=== PATIENT | female | born 1995 | race Caucasian/White ===

== ENCOUNTER 2016-05-12 14:00 | Observation (INO) | payer SELFPAY ==
[~2016-05-12 14:00] MED LIST: Heparin Sodium 5,000 Units/ML Vial SUBCUT SCH
[2016-05-12] MEDS: Lactated Ringers 1,000 ML IV SCH ×2 (14:30→21:50)
[2016-05-12] MEDS ORDERED: Lidocaine 1%/Sod Bicarbonate in NS 8.4% 1 ML Syringe IV ONE (14:54)
--- NOTE | 2016-05-12 15:26 | PCM.PREANE ---
Preanesthetic Assessment - ANESTHESIA/TRANSFUSION/FAMILY HX Anesthesia/Transfusion History: No Prior Transfusion(s), Prior Anesthesia Type of Anesthesia Reaction: Denies: Allergy, Anesthesia Awareness, Excessive Somnolence, Excessive Nausea/Vomiting, Excessive Itching, Excessive Shivering, Malignant Hyperthermia, Malignant Hyperthermia, Family History, Pseudocholinesterase Deficiency, Pseudocholinesterase Deficiency, Family History of, Urinary Retention, Unknown, Other (see below) Family History of Anesthesia Reaction: No Intubation History: Unknown - REVIEW OF SYSTEMS Constitutional: 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 (Note patient being almost 26 weeks .) 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: 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 Respiratory: 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 (asthma as a child, no symptoms as an adult.) Cardiovascular: 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 GI: 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 Other: Reports: none - PHYSICAL ASSESSMENT HR: 97 O2 Sat by Pulse Oximetry: 97 RR: 16 BP: 123/70 Temp: 37.0 C Vital Signs: Last Vital Signs Temp 37.0 C 05/12/16 14:00 Pulse 97 05/12/16 14:00 Resp 16 05/12/16 14:00 BP 123/70 05/12/16 14:00 Pulse Ox 97 05/12/16 14:00 Height: 1.73 m Weight: 92.079 kg NPO Status Date: 05/12/16 NPO Status Time: 07:30 ASA Class: 2E Mental Status: alert & oriented x3 Airway Class: Mallampati = 2 Dentition: Reports: normal dentition, caries Thyro-Mental Finger Breadths: 3 Mouth Opening Finger Breadths: 3 ROM/Head Extension: full Respiratory Status: lungs clear to auscultation bilaterally Cardiovascular Status: regular rate & rhythm, normal S1, S2, no murmur, blood pressure WNL - LAB Values: Reviewed and noted. - IMAGING/EKG Impressions: EK: Sinus Tachycardia/Borderline Q waves in inferior leads noted./ This EKG was performed after C section due to heart racing. Patient states she has not had any problems since. 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: - Past Surgical History HEENT Surgical History: Reports: Adenoidectomy - SUBSTANCE USE Smoking Status *Q: Never Smoker Tobacco Use Within Last Twelve Months: No Second Hand Smoke Exposure: No Recreational Drug Use History: No - HOME MEDS Home Medications: Home Meds Vits #90/Iron Fum/FA [ Formula] 1 each PO DAILY 11/10/14 [ History] Acetaminophen/oxyCODONE [Percocet 325-5 MG] 1 tab PO Q8H PRN #15 tablet [Rx] Docusate Sodium [Colace] 100 mg PO Q12H PRN #50 cap 11/13/14 [Rx] - CURRENT (IN HOUSE) MEDS Current Meds: Current Medications Heparin Sodium (Porcine) (Heparin Sodium) 5,000 units SUBCUT ONETIME [facility]UDDY Stop: 05/12/16 18:00 Lactated Ringer's (Ringers, Lactated) 1,000 mls @ 125 mls/hr IV ASDIRECTED RUDDY Last Admin: 05/12/16 14:30 Dose: 125 mls/hr Discontinued Medications Lidocaine/Sodium Bicarbonate (Buffered Lidocaine 1% In Ns 8.4%) 0.25 ml IV ONETIME ONE Stop: 05/12/16 14:55
[2016-05-12] MEDS ORDERED: Bupivacaine 0.5%/EPINEPHrine 1:200,000 50 ML MDV ONE (15:41)
[2016-05-12] MEDS ORDERED: Lidocaine 1% with EPINEPHrine 1:100,000 20 ML MDV ONE (15:41)
[2016-05-12] MEDS ORDERED: HYDROmorphone 1 MG/ML Syringe ONE ×2 (16:06→17:46)
[2016-05-12] MEDS ORDERED: Ondansetron 4 MG/2 ML SDV ONE (16:06)
[2016-05-12] MEDS ORDERED: Lactated Ringers 1,000 ML ONE ×2 (16:06→18:02)
[2016-05-12] MEDS ORDERED: Rocuronium 50 MG/5 ML Vial ONE (16:06)
[2016-05-12] MEDS ORDERED: Succinylcholine/Normal Saline 100 MG/5 ML Syringe ONE (16:06)
[2016-05-12] MEDS ORDERED: Lidocaine 1% 2 ML SDV ONE (16:06)
[2016-05-12] MEDS ORDERED: ceFAZolin 1 GM Vial ONE (16:06)
[2016-05-12] MEDS ORDERED: fentaNYL 250 MCG/5 ML SDV ONE (16:07)
[2016-05-12] MEDS ORDERED: Propofol 200 MG/20 ML SDV ONE (16:07)
--- NOTE | 2016-05-12 16:30 | PCM.OPNOTE ---
- General Post-Op/Procedure Note Date of Surgery/Procedure: 05/12/16 Operative Procedure(s): Laparoscopic cholecystectomy with laparoscopic appendectomy Pre Op Diagnosis: Symptomatic cholelithiasis, transaminitis, intrauterine Post-Op Diagnosis: Chronic cholecystitis, cholelithiasis, transaminitis, dilated appendix Anesthesia Technique: General ET tube, Local Primary Surgeon: Jenna Al Anesthesia Provider: Ami Lea French Folder: Ping Perry Pathology: 1. Gallbladder and contents 2. Appendix Fluid Replacement, Intraop: 2,000 (mL crystalloid ) EBL in mLs: 10 Complications: None Condition: Good Free Text/Narrative:: Indication for Procedure: The patient is a 20-year-old man who had been referred to me by Dr. Darius Mcduffie and the Emergency Department for evaluation for symptomatic cholelithiases, transaminitis, abdominal pain in the setting of intrauterine at 25 weeks. I discussed with the patient performing a laparoscopic cholecystectomy and associated risks of the procedure. The patient found these risks acceptable and agreed to proceed. Description of Procedure: The patient was taken to the operating room and placed in the supine position. Sequential compressive devices were placed on the bilateral lower extremities. After induction of general endotracheal anesthesia, the abdomen was prepped and draped in the usual sterile fashion. Preoperative antibiotics had been administered as per protocol. heart tones were confirmed at 147 prior to the surgery. A supraumbilical curvilinear incision was made using a scalpel. This was deepened down through the subcutaneous tissues to the anterior abdominal wall fascia which was elevated and incised. The abdomen was very cautiously entered with a hemostat, taking great care to avoid the uterus. A stay suture was placed. A Edgar cannula was introduced into the abdomen and the abdomen was insufflated to 15 mm of mercury. The abdomen was then surveyed. The gravid uterus was normal in appearance, ovaries and fallopian tubes appeared unremarkable. Attention was turned then to the patient's gallbladder which was chronically inflamed. Two additional 5 mm trocars were then placed under direct visualization after first injecting local anesthetic, one in the epigastrium and one in the right subcostal margin. The gallbladder fundus was elevated, scarring was taken down around the gallbladder using blunt dissection and hook cautery and the triangle of Calot was dissected. The critical view of safety was obtained. The cystic duct and the cystic artery were triply clipped and transected using Endo Camille. The gallbladder was then taken off the liver bed using hook electrocautery. The gallbladder was placed into an EndoCatch bag. The abdomen was irrigated and suctioned until the effluent was clear. The liver bed was reinspected for hemostasis. The 5 mm trocars were removed with no evidence of bleeding. The appendix, which was in the right upper quadrant, was then inspected. It was dilated. A mesenteric window was made at the appendiceal base. The appendix was taken using eletrocautery. The mesentery was then taken using the Harmonic scalpel. The gallbladder and appendix was placed into an Endocatch bag and removed. The Edgar cannula was removed. The patient's fascial incision was closed using an 0 Vicryl pmemuv-og-xraue suture. Additional local anesthetic was injected issa-incisionally. The incisions were then closed using subcuticular 4-0 Monocryl suture. Dermabond was placed over the patient's skin incisions. The patient was then awakened from anesthesia, extubated, and transferred to the recovery room in stable condition having tolerated the procedure well. Sponge and instrument counts were reported as correct at the end of the case. Postoperative Plan: The patient will be kept overnight for intermittent monitoring as per my discussion with Dr. Mcduffie. I discussed my intraoperative findings and discharge instructions with the patient's . Postoperative heart tones were confirmed at 166 at the conclusion of the case in the recovery room.
[2016-05-12] MEDS ORDERED: HYDROmorphone 0.5 MG/0.5 ML Syringe IVPUSH PRN (17:29)
[2016-05-12] MEDS ORDERED: Ondansetron 4 MG/2 ML SDV IVPUSH PRN ×2 (17:29→19:01)
[2016-05-12] MEDS ORDERED: ePHEDrine 50 MG/ML SDV IVPUSH PRN (17:29)
[2016-05-12] MEDS ORDERED: Neostigmine Methylsulfate 1 MG/ML 5 ML Syringe ONE (17:45)
[2016-05-12] MEDS ORDERED: fentaNYL 100 MCG/2 ML SDV ONE (17:55)
[2016-05-12] MEDS ORDERED: Polyethylene Glycol 3350 Powder 17 GM Packet PO PRN (19:01)
[2016-05-12] MEDS ORDERED: Docusate Sodium 100 MG Cap PO PRN (19:01)
--- NOTE | 2016-05-12 19:03 | PCM.POSTAN ---
POST ANESTHESIA ASSESSMENT - MENTAL STATUS Mental Status: alert - VITAL SIGNS Pulse Rate: 110 SaO2: 97 Resp Rate: 11 Blood Pressure: 119/64 Temperature: 36.4 C - RESPIRATORY Respiratory Status: respiratory rate WNL, airway patent, O2 saturation stable, supplemental oxygen - CARDIOVASCULAR CV Status: pulse rate WNL, blood pressure stable - GASTROINTESTINAL GI Status: no symptoms - POST OP HYDRATION Hydration Status: adequate & stable
[2016-05-12] MEDS: fentaNYL 100 MCG/2 ML SDV IVPUSH PRN ×3 (19:15→19:38)
[2016-05-12] MEDS ORDERED: Lactated Ringers 1,000 ML IV SCH (19:15)
[2016-05-12] MEDS: Acetaminophen/oxyCODONE 325-5 MG Tab PO PRN (21:37)
[2016-05-13] MEDS: Acetaminophen/oxyCODONE 325-5 MG Tab PO PRN ×2 (01:48→09:14)
--- NOTE | 2016-05-13 08:15 | PCM48HPAN ---
Post Anesthesia Note - EVALUATION WITHIN 48HRS OF ANESTHETIC Vital Signs in Normal Range: Yes Patient Participated in Evaluation: Yes Respiratory Function Stable: Yes Airway Patent: Yes Cardiovascular Function Stable: Yes Hydration Status Stable: Yes Pain Control Satisfactory: Yes Nausea and Vomiting Control Satisfactory: Yes Mental Status Recovered: Yes
[2016-05-13] MEDS ORDERED: Prenatal Multivitamin with Calcium/Folic Acid/Iron Tab PO SCH (09:00)
[2016-05-13] MEDS ORDERED: Heparin Sodium 5,000 Units/ML Vial SUBCUT SCH (09:00)
[2016-05-13] MEDS ORDERED: Sodium Chloride 0.9% 10 ML Syringe FLUSH PRN (10:24)
[2016-05-13 11:58] VITALS: BP 101/47
--- NOTE | 2016-05-13 13:50 | PCM.DCSUM1 ---
Discharge Summary - Hospital Course Free Text/Narrative:: 20 yo woman with IUP at 25 wks presented after ED visit for symptomatic cholelithiasis and transaminitis. She underwent laparoscopic cholecystectomy successfully. Her appendix was also dilated and it was removed as well. She tolerated the procedure well and was kept overnight for intermittent monitoring. Today she is tolerating a regular diet and her pain is well controlled. She has had no contractions and has reported normal movement. Dr. Mcduffie did see her during her hospital stay and had no concerns about her discharging home. Discharge instructions: Patient is to not lift more than 20 pounds for the next 4 weeks. May shower. Do not to submerge wounds. Do not to drive while taking narcotic pain medications. Dermabond over the incision sites will flake off in 7-14 days. Call the office at for temperatures greater than 101.5, intractable pain, intractable nausea, vomiting, erythema or drainage from wounds. If you need to reach Dr. Al after hours, you may do so through the hospital amusement ride operator at [place] [phone]. May resume usual diet today. Nursing - Okay to give dose of prescribed oral pain medication prior to discharge. In case of constipation, may take over the counter Miralax or Milk of Magnesia 30 mL every 6 hours until you have a bowel movement. May use ice or heat to aid in pain relief. For your safety, you should have a responsible adult with you for 24 hours. You may experience lightheadedness and dizziness after your procedure. Do not stay alone. No alcoholic beverages or sleeping pills for 24 hours. You may also experience a mild throat irritation. You may use a throat lozenge or gargle with warm water. For any contractions or vaginal bleeding, contact Dr. Mcduffie's office and come to the hospital immediately. - Discharge Data Discharge Date: 05/13/16 Discharge Disposition: Home, Self-Care 01 Condition: Good - Discharge Diagnosis/Problem(s) (1) 25 weeks gestation of SNOMED Code(s): 67609673 ICD Code: Z3A.25 - 25 WEEKS GESTATION OF Status: Acute (2) Abdominal pain SNOMED Code(s): 82962723 ICD Code: R10.9 - UNSPECIFIED ABDOMINAL PAIN Status: Acute Qualifiers: Abdominal location: right upper quadrant Qualified Code(s): R10.11 - Right upper quadrant pain (3) Biliary colic SNOMED Code(s): 52511604 ICD Code: K80.50 - CALCULUS OF BILE DUCT W/O CHOLANGITIS OR CHOLECYST W/O OBST Status: Acute (4) Gall stones SNOMED Code(s): 111002252 ICD Code: K80.20 - CALCULUS OF GALLBLADDER W/O CHOLECYSTITIS W/O OBSTRUCTION Status: Acute (5) Abnormal transaminases SNOMED Code(s): 297833611 ICD Code: R74.0 - NONSPEC ELEV OF LEVELS OF TRANSAMNS & LACTIC ACID DEHYDRGNSE Status: Acute (6) Elevated alkaline phosphatase level Status: Acute - Patient Summary/Data Operative Procedure(s) Performed: Laparoscopic cholecystectomy and appendectomy Consults: Consultations 05/12/16 19:01 Consult to Physician [CONS] Routine - Dr. Chip Mcduffie, [facility] for OB care Respiratory Care Assess and Treatment [CONS] Routine - Patient Instructions Diet: Regular Diet as Tolerated Activity: No Lifting Over 20 Pounds (x 4 weeks ) Driving: Do Not Drive (while on narcotics ) Showering/Bathing: May Shower Wound/Incision, Other: Dermabond will fall off in about 2 weeks. Notify Provider of: Fever, Increased Pain, Swelling and Redness, Drainage, Nausea and/or Vomiting - Discharge Plan Home Medications: Home Meds Vits #90/Iron Fum/FA [ Formula] 1 each PO DAILY 11/10/14 [ History] Acetaminophen/oxyCODONE [Percocet 325-5 MG] 1 tab PO Q8H PRN #15 tablet [Rx] Docusate Sodium [Colace] 100 mg PO Q12H PRN #50 cap 11/13/14 [Rx] Patient Handouts: Third Trimester of , [id number]-Ejkw, Laparoscopic Appendectomy, Adult, Care After, Laparoscopic Cholecystectomy, Care After Referrals: Chip Mcduffie MD [Primary Care Provider] - Jenna Al MD [Physician] - ([address] Al ) - Discharge Summary/Plan Comment DC Time >30 min.: No - General Info Date of Service: 05/13/16 - Review of Systems Systems Review Comment: Feeling well. Minimal incisional discomfort. Normal movment. Tolerating diet. - Patient Data Vitals - Most Recent: Last Vital Signs Temp 98.1 F 05/13/16 11:41 Pulse 72 05/13/16 11:41 Resp 16 05/13/16 11:41 BP 101/47 L 05/13/16 11:41 Pulse Ox 97 05/13/16 11:41 Weight - Most Recent: 210 lb 9.6 oz I&O - Last 24 hours: Intake & Output 05/12/16 05/13/16 05/13/16 22:59 06:59 14:59 Intake Total 2450 460 Output Total 850 Balance 2450 -850 460 Lab Results - Last 24 hrs: Laboratory Results - last 24 hr 05/13/16 05/13/16 Range/Units 07:15 07:15 WBC 9.74 (3.98-10.04) K/mm3 RBC 3.97 L (3.98-5.22) M/mm3 Hgb 10.5 L (11.2-15.7) gm/L Hct 32.7 L (34.1-44.9) % MCV 82.4 (79.4-94.8) fl MCH 26.4 (25.6-32.2) pg MCHC 32.1 L (32.2-35.5) g/dl RDW Std Deviation 44.7 (36.4-46.3) fL Plt Count 314 (182-369) K/mm3 MPV 9.0 L (9.4-12.3) fl Neut % (Auto) 68.6 (34.0-71.1) % Lymph % (Auto) 24.2 (19.3-51.7) % [place] % (Auto) 6.4 (4.7-12.5) % Eos % (Auto) 0.6 L (0.7-5.8) Baso % (Auto) 0.1 (0.1-1.2) % Neut # 6.68 H (1.56-6.13) K/mm3 Lymph # 2.36 (1.18-3.74) K/mm3 [place] # 0.62 H (0.24-0.36) K/mm3 Eos # 0.06 (0.04-0.36) K/mm3 Baso # 0.01 (0.01-0.08) K/mm3 Sodium 139 (136-145) mEq/L Potassium 3.3 L (3.5-5.1) mEq/L Chloride 106 (98-107) mEq/L Carbon Dioxide 22 (21-32) mEq/L Anion Gap 14.3 (5-15) BUN 5 L (7-18) mg/dL Creatinine 0.5 L (0.55-1.02) mg/dL Est Cr Clr Drug Dosing 178.03 mL/min Estimated GFR (MDRD) > 60 (>60) mL/min BUN/Creatinine Ratio 10.0 L (14-18) Glucose 69 L (74-106) mg/dL Calcium 8.0 L (8.5-10.1) mg/dL Total Bilirubin 0.3 (0.2-1.0) mg/dL Direct Bilirubin 0.10 (0.0-0.2) mg/dl Indirect Bilirubin 0.20 AST 30 (15-37) U/L ALT 41 (14-59) U/L Alkaline Phosphatase 89 (46-116) U/L Total Protein 5.7 L (6.4-8.2) g/dl Albumin 2.5 L (3.4-5.0) g/dl Globulin 3.2 gm/dL Albumin/Globulin Ratio 0.8 L (1-2) Med Orders - Current: Current Medications Docusate Sodium (Colace) 100 mg PO BID PRN PRN Reason: Constipation Last Admin: 05/13/16 01:53 Dose: 100 mg Ephedrine Sulfate (Ephedrine Sulfate) 5 mg IVPUSH ASDIRECTED PRN PRN Reason: Hypotension Heparin Sodium (Porcine) (Heparin Sodium) 5,000 units SUBCUT Q8H [facility] Last Admin: 05/13/16 09:36 Dose: 5,000 units Lactated Ringer's (Ringers, Lactated) 1,000 mls @ 50 mls/hr IV ASDIRECTED [facility] Ondansetron HCl (Zofran) 4 mg IVPUSH Q8H PRN PRN Reason: Nausea/Vomiting Oxycodone/Acetaminophen (Percocet 325-5 Mg) 2 tab PO Q4H PRN PRN Reason: Pain (moderate 4-6) Last Admin: 05/13/16 09:14 Dose: 2 tab Polyethylene Glycol (Miralax) 17 gm PO DAILY PRN PRN Reason: Constipation Prenat Multivit/Eagle/Iron/Folic Ac ( Plus Iron) 1 each PO DAILY [facility] Last Admin: 05/13/16 09:22 Dose: Not Given Sodium Chloride (Saline Flush) 10 ml FLUSH ASDIRECTED PRN PRN Reason: Keep Vein Open Discontinued Medications Bupivacaine HCl/Epinephrine Bitart (Marcaine 0.5%/Epinephrine 1:200,000) Confirm Administered Dose 50 ml .ROUTE .STK-MED ONE Stop: 05/12/16 15:42 Last Admin: 05/12/16 17:14 Dose: 20 ml Cefazolin Sodium (Ancef) Confirm Administered Dose 2 gm .ROUTE .STK-MED ONE Stop: 05/12/16 16:07 Fentanyl (Sublimaze) Confirm Administered Dose 250 mcg .ROUTE .STK-MED ONE Stop: 05/12/16 16:08 Fentanyl (Sublimaze) 50 mcg IVPUSH Q5M PRN PRN Reason: Pain Stop: 05/12/16 17:45 Last Admin: 05/12/16 19:38 Dose: 50 mcg Fentanyl (Sublimaze) Confirm Administered Dose 100 mcg .ROUTE .STK-MED ONE Stop: 05/12/16 17:56 Glycopyrrolate () Confirm Administered Dose 1 mg .ROUTE .STK-MED ONE Stop: 05/12/16 17:46 Heparin Sodium (Porcine) (Heparin Sodium) 5,000 units SUBCUT ONETIME [facility] Stop: 05/12/16 18:00 Last Admin: 05/12/16 16:46 Dose: 5,000 units Hydromorphone HCl (Dilaudid) Confirm Administered Dose 1 mg .ROUTE .STK-MED ONE Stop: 05/12/16 16:07 Hydromorphone HCl (Dilaudid) 0.5 mg IVPUSH Q15M PRN PRN Reason: severe pain Stop: 05/12/16 17:45 Last Admin: 05/12/16 19:13 Dose: 0.5 mg Hydromorphone HCl (Dilaudid) Confirm Administered Dose 1 mg .ROUTE .STK-MED ONE Stop: 05/12/16 17:47 Lactated Ringer's (Ringers, Lactated) 1,000 mls @ 125 mls/hr IV ASDIRECTED [facility] Last Infusion: 05/13/16 01:53 Dose: 50 mls/hr Lactated Ringer's (Ringers, Lactated) Confirm Administered Dose 1,000 mls @ as directed .ROUTE .STK-MED ONE Stop: 05/12/16 16:07 Lactated Ringer's (Ringers, Lactated) Confirm Administered Dose 1,000 mls @ as directed .ROUTE .STK-MED ONE Stop: 05/12/16 18:03 Lidocaine HCl (Lidocaine 1%) Confirm Administered Dose 6 ml .ROUTE .STK-MED ONE Stop: 05/12/16 16:07 Lidocaine/Epinephrine (Xylocaine 1% With Epinephrine 1:100,000) Confirm Administered Dose 20 ml .ROUTE .STK-MED ONE Stop: 05/12/16 15:42 Last Admin: 05/12/16 17:14 Dose: 20 ml Lidocaine/Sodium Bicarbonate (Buffered Lidocaine 1% In Ns 8.4%) 0.25 ml IV ONETIME ONE Stop: 05/12/16 14:55 Last Admin: 05/12/16 20:52 Dose: Not Given Neostigmine Methylsulfate (Neostigmine) Confirm Administered Dose 5 mg .ROUTE .ST-MED ONE Stop: 05/12/16 17:46 Ondansetron HCl (Zofran) Confirm Administered Dose 4 mg .ROUTE .STK-MED ONE Stop: 05/12/16 16:07 Ondansetron HCl (Zofran) 4 mg IVPUSH ONETIME PRN PRN Reason: Nausea/Vomiting Last Admin: 05/12/16 21:29 Dose: 4 mg Propofol (Diprivan 20 Ml) Confirm Administered Dose 200 mg .ROUTE .ST-MED ONE Stop: 05/12/16 16:08 Rocuronium [place] (Zemuron) Confirm Administered Dose 50 mg .ROUTE .STK-MED ONE Stop: 05/12/16 16:07 Succinylcholine Chloride (Succinylcholine In Ns Pf) Confirm Administered Dose 100 mg .ROUTE .STK-MED ONE Stop: 05/12/16 16:07 - Exam General: Reports: alert, oriented, cooperative, no acute distress HEENT: Denies: Scleral icterus Lungs: Reports: Clear to auscultation, Normal respiratory effort Cardiovascular: Reports: regular rate, regular rhythm Abdomen: Reports: soft, no distension, tenderness (minimal issa-incisional ) (Female) Exam: Deferred Rectal (Female) Exam: Deferred Extremities: Reports: no edema Skin: Reports: warm, dry, intact Wound/Incisions: Reports: healing well, no drainage, other (Dermabond intact, minimal ecchymosis, more around umbilicus ) Neurological: Reports: no new focal deficit Psy/Mental Status: Reports: alert, normal affect, normal mood *Q Meaningful Use (DIS) - VTE *Q VTE Criteria *Q: - Stroke *Q Stroke Criteria *Q: - AMI *Q AMI Criteria *Q:
--- NOTE | 2016-05-13 16:43 | PCM.CONS ---
H&P History of Present Illness - General Date of Service: 05/13/16 Admit Problem/Dx: Abdominal pain, cholelithiases, transaminitis, intrauterine at 25 weeks Source of Information: Patient History Limitations: Reports: No limitations - History of Present Illness Initial Comments - Free Text/Narative: 20-year-old, G2, P1001 on underwent, cholecystectomy, and appendectomy. via laparoscope, Dr. Al, general surgery patient kept in- house overnight to make sure. No labor or complications with the , and to make sure she could tolerate diet before being dismissed. She was seen today by me. Uterus is soft, nontender. No contractions. Patient tolerating diet. Incision looked normal. Patient will be dismissed today. If okay with Dr. 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: - Infectious Disease History Infectious Disease History: Reports: Chicken pox - Past Surgical History HEENT Surgical History: Reports: Adenoidectomy, Oral surgery Other HEENT Surgeries/Procedures: 1997, 2006 Social & Family History - Family History Family Medical History: Noncontributory - Tobacco Use Smoking Status *Q: Never Smoker Second Hand Smoke Exposure: No - Caffeine Use Caffeine Use: Reports: Coffee Caffeine Use Comment: 2 cups per day - Recreational Drug Use Recreational Drug Use: No - Living Situation & Occupation Living situation: Reports: Occupation: unemployed H&P Review of Systems - Review of Systems: Review Of Systems: See Below General: 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 HEENT: 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 Pulmonary: 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 Cardiovascular: 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 Gastrointestinal: Reports: No symptoms Genitourinary: 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 Musculoskeletal: 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 Skin: 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 Psychiatric: 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 Neurological: 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 Hematologic/Lymphatic: 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 Immunologic: 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 Exam - Exam Exam: See Below - Vital Signs Vital Signs: Last Vital Signs Temp 98.1 F 05/13/16 11:41 Pulse 72 05/13/16 11:41 Resp 16 05/13/16 11:41 BP 101/47 L 05/13/16 11:41 Pulse Ox 97 05/13/16 11:41 Weight: 210 lb 9.6 oz - Exam General: alert, oriented, 4 HEENT: Conjunctiva clear, Hearing intact, Mucosa moist & pink, Nares patent, Normal nasal septum, Posterior pharynx clear, TMs clear, PERRLA Neck: supple, trachea midline, 2 Lungs: Clear to auscultation, Normal respiratory effort Cardiovascular: regular rate, regular rhythm Abdomen: normal bowel sounds, soft (Female) Exam: Normal external exam, Normal speculum exam, Normal bimanual exam Back Exam: normal inspection, full range of motion, NT Extremities: 3, normal inspection, 10 Skin: warm, dry, intact Neurological: reflexes equal bilateral Neuro Extensive - Mental Status: alert, oriented x3, normal mood/affect, normal cognition Psychiatric: alert, normal affect, normal mood - Patient Data Lab Results last 24 hrs: Laboratory Results - last 24 hr 05/13/16 05/13/16 Range/Units 07:15 07:15 WBC 9.74 (3.98-10.04) K/mm3 RBC 3.97 L (3.98-5.22) M/mm3 Hgb 10.5 L (11.2-15.7) gm/L Hct 32.7 L (34.1-44.9) % MCV 82.4 (79.4-94.8) fl MCH 26.4 (25.6-32.2) pg MCHC 32.1 L (32.2-35.5) g/dl RDW Std Deviation 44.7 (36.4-46.3) fL Plt Count 314 (182-369) K/mm3 MPV 9.0 L (9.4-12.3) fl Neut % (Auto) 68.6 (34.0-71.1) % Lymph % (Auto) 24.2 (19.3-51.7) % Smith % (Auto) 6.4 (4.7-12.5) % Eos % (Auto) 0.6 L (0.7-5.8) Baso % (Auto) 0.1 (0.1-1.2) % Neut # 6.68 H (1.56-6.13) K/mm3 Lymph # 2.36 (1.18-3.74) K/mm3 Smith # 0.62 H (0.24-0.36) K/mm3 Eos # 0.06 (0.04-0.36) K/mm3 Baso # 0.01 (0.01-0.08) K/mm3 Sodium 139 (136-145) mEq/L Potassium 3.3 L (3.5-5.1) mEq/L Chloride 106 (98-107) mEq/L Carbon Dioxide 22 (21-32) mEq/L Anion Gap 14.3 (5-15) BUN 5 L (7-18) mg/dL Creatinine 0.5 L (0.55-1.02) mg/dL Est Cr Clr Drug Dosing 178.03 mL/min Estimated GFR (MDRD) > 60 (>60) mL/min BUN/Creatinine Ratio 10.0 L (14-18) Glucose 69 L (74-106) mg/dL Calcium 8.0 L (8.5-10.1) mg/dL Total Bilirubin 0.3 (0.2-1.0) mg/dL Direct Bilirubin 0.10 (0.0-0.2) mg/dl Indirect Bilirubin 0.20 AST 30 (15-37) U/L ALT 41 (14-59) U/L Alkaline Phosphatase 89 (46-116) U/L Total Protein 5.7 L (6.4-8.2) g/dl Albumin 2.5 L (3.4-5.0) g/dl Globulin 3.2 gm/dL Albumin/Globulin Ratio 0.8 L (1-2) Result Diagrams: 05/13/16 07:15 05/13/16 07:15 Consult PN Assessment/Plan Procedures: Procedures ASSAY OF LIPASE (05/06/16) BLOOD TYPING SEROLOGIC ABO (01/17/16) BLOOD TYPING SEROLOGIC RH(D) (01/17/16) CHYLMD TRACH DNA AMP PROBE (01/17/16) COMPLETE CBC W/AUTO DIFF WBC (05/06/16) COMPREHEN METABOLIC PANEL (05/06/16) ECHO EXAM OF ABDOMEN (05/06/16) EMERGENCY DEPT VISIT (05/06/16) HEPATITIS B SURFACE AG IA (01/17/16) HYDRATE IV INFUSION ADD-ON (05/06/16) N.GONORRHOEAE DNA AMP PROB (01/17/16) OB US >/= 14 WKS SNGL FETUS (03/31/16) RBC ANTIBODY SCREEN (01/17/16) ROUTINE VENIPUNCTURE (05/06/16) RUBELLA ANTIBODY (01/17/16) SYPHILIS TEST NON-TREP QUAL (01/17/16) THER/PROPH/DIAG INJ IV PUSH (05/06/16) TRANSVAGINAL US OBSTETRIC (01/17/16) URINALYSIS AUTO W/O SCOPE (05/01/16) URINALYSIS AUTO W/SCOPE (05/06/16) URINE CULTURE/COLONY COUNT (01/17/16) (1) 25 weeks gestation of SNOMED Code(s): 10846298 Code(s): Z3A.25 - 25 WEEKS GESTATION OF Current Visit: No (2) Abdominal pain SNOMED Code(s): 83256690 Code(s): R10.9 - UNSPECIFIED ABDOMINAL PAIN Current Visit: No Qualifiers: Abdominal location: right upper quadrant Qualified Code(s): R10.11 - Right upper quadrant pain (3) Biliary colic SNOMED Code(s): 10168027 Code(s): K80.50 - CALCULUS OF BILE DUCT W/O CHOLANGITIS OR CHOLECYST W/O OBST Current Visit: No (4) Gall stones SNOMED Code(s): 252517890 Code(s): K80.20 - CALCULUS OF GALLBLADDER W/O CHOLECYSTITIS W/O OBSTRUCTION Current Visit: No (5) Midepigastric pain SNOMED Code(s): 46338992 Code(s): R10.13 - EPIGASTRIC PAIN Current Visit: No Problem List Initiated/Reviewed/Updated: No Plan: patient exhibited no signs of labor will be dismissed to return to clinic as upon for followup
== END 2016-05-13 15:00 | disposition home or self-care (01) ==
LOC: JD.SDS 14:00 → JD.OB 19:01
PROVIDERS: ADMIT Surgery; ATTEND Surgery
PROC: 0FT44ZZ Resection of Gallbladder, Percutaneous Endoscopic Approach (ICD-10-PCS; principal; 2016-05-12)
DX: O99.612 Diseases of the digestive system complicating pregnancy, second trimester (principal); K80.10 Calculus of gallbladder with chronic cholecystitis without obstruction; Z3A.25 25 weeks gestation of pregnancy
CPT/HCPCS: 36415; 47562; 80048; 80076; 85025; 88304; A9270; G0378; J0330; J0690; J1170; J1644; J2405; J2710; J3010; J7120; 00790; J2704

== ENCOUNTER 2016-08-23 01:48 | Inpatient (IN) | payer SELFPAY ==
[2016-08-23] MEDS ORDERED: Ampicillin 2 GM in Sodium Chloride 0.9% 100 ML IV ONE (02:00)
[2016-08-23] MEDS ORDERED: Sodium Chloride 0.9% 10 ML Syringe FLUSH PRN (02:12)
[2016-08-23] MEDS ORDERED: Nalbuphine 20 MG/1 ML Amp IVPUSH PRN (02:12)
[2016-08-23] MEDS ORDERED: Lidocaine 1% 50 ML MDV INJECT PRN (02:12)
[2016-08-23] MEDS ORDERED: Oxytocin/Lactated Ringers 10 UNIT/1,000 ML BAG IV SCH (02:15)
[2016-08-23] MEDS: Lactated Ringers 1,000 ML IV SCH ×3 (02:20→05:08)
[2016-08-23] MEDS ORDERED: Sodium Chloride 0.9% 200 ML ONE (02:40)
[2016-08-23] MEDS: Ampicillin 1 GM in Sodium Chloride 0.9% 100 ML IV SCH ×3 (02:45→06:32)
[2016-08-23] MEDS ORDERED: ePHEDrine 50 MG/ML SDV IVPUSH PRN (03:19)
[2016-08-23] MEDS ORDERED: fentaNYL 100 MCG/2 ML SDV EPIDUR PRN (03:19)
[2016-08-23] MEDS ORDERED: Ondansetron 4 MG/2 ML SDV IVPUSH PRN (03:19)
[2016-08-23] MEDS ORDERED: diphenhydrAMINE 50 MG/ML SDV IVPUSH PRN (03:19)
[2016-08-23] MEDS ORDERED: Bupivacaine/fentaNYL/NS 100 ML Bag EPIDUR SCH (03:30)
--- NOTE | 2016-08-23 04:01 | PCM.PREANE ---
Addendum entered and electronically signed by Herberth Diallo CRNA 08/23/16 04 :00: Preop assessment originally completed at 0315 Original Note: Preanesthetic Assessment - Procedure Proposed Procedure: Labor Epidural - Anesthesia/Transfusion/Family Hx Anesthesia History: Prior Anesthesia Without Reaction Family History of Anesthesia Reaction: No Transfusion History: No Prior Transfusion(s) Intubation History: Unknown - Review of Systems General: No Symptoms Pulmonary: No Symptoms Cardiovascular: No Symptoms Gastrointestinal: No symptoms Neurological: No Symptoms Other: Reports: None - Physical Assessment NPO Status Date: 08/23/16 NPO Status Time: 01:00 Respiratory Rate: 16 Vital Signs: Last Vital Signs Temp 37.0 C 08/23/16 02:12 Pulse 87 08/23/16 02:12 Resp 16 08/23/16 02:12 BP 127/83 08/23/16 02:12 Pulse Ox Height: 1.73 m Weight: 95.527 kg ASA Class: 2 Mental Status: Alert & Oriented x3 Airway Class: Mallampati = 2 Dentition: Reports: Normal Dentition Thyro-Mental Finger Breadths: 3 Mouth Opening Finger Breadths: 3 ROM/Head Extension: Full Lungs: Clear to auscultation, Normal respiratory effort Cardiovascular: Regular Rate, Regular Rhythm - Lab Values: Laboratory Last Values WBC 11.27 K/mm3 (3.98-10.04) H 08/23/16 02:24 RBC 4.82 M/mm3 (3.98-5.22) 08/23/16 02:24 Hgb 12.5 gm/L (11.2-15.7) 08/23/16 02:24 Hct 38.6 % (34.1-44.9) 08/23/16 02:24 MCV 80.1 fl (79.4-94.8) 08/23/16 02:24 MCH 25.9 pg (25.6-32.2) 08/23/16 02:24 MCHC 32.4 g/dl (32.2-35.5) 08/23/16 02:24 RDW Std Deviation 44.5 fL (36.4-46.3) 08/23/16 02:24 Plt Count 348 K/mm3 (182-369) 08/23/16 02:24 MPV 9.0 fl (9.4-12.3) L 08/23/16 02:24 Blood Type O POSITIVE 08/23/16 02:24 Gel Antibody Screen Negative 08/23/16 02:24 - Allergies Allergies/Adverse Reactions: Allergies Allergy/AdvReac Type Severity Reaction Status Date / Time No Known Allergies Allergy Verified 05/06/16 17:40 - Blood Blood Available: No Product(s) Available: None - Anesthesia Plan Pre-Op Medication Ordered: None - Acknowledgements Anesthesia Type Planned: Epidural Pt an Appropriate Candidate for the Planned Anesthesia: Yes Alternatives and Risks of Anesthesia Discussed w Pt/Guardian: Yes Pt/Guardian Understands and Agrees with Anesthesia Plan: Yes PreAnesthesia Questionnaire HEENT History: Reports: None Respiratory History: Reports: Asthma, Other (See Below) Other Respiratory History: As a child 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: - Infectious Disease History Infectious Disease History: Reports: Chicken Pox - Past Surgical History HEENT Surgical History: Reports: Adenoidectomy, Oral Surgery - SUBSTANCE USE Smoking Status *Q: Never Smoker Tobacco Use Within Last Twelve Months: No Second Hand Smoke Exposure: No Recreational Drug Use History: No - HOME MEDS Home Medications: Home Meds Vits #90/Iron Fum/FA [ Formula] 1 each PO DAILY 11/10/14 [ History] Acetaminophen/oxyCODONE [Percocet 325-5 MG] 1 tab PO Q8H PRN #15 tablet [Rx] Docusate Sodium [Colace] 100 mg PO Q12H PRN #50 cap 11/13/14 [Rx] - CURRENT (IN HOUSE) MEDS Current Meds: Current Medications Diphenhydramine HCl (Benadryl) 25 mg IVPUSH Q6H PRN PRN Reason: Pruritis Ephedrine Sulfate (Ephedrine Sulfate) 5 mg IVPUSH ASDIRECTED PRN PRN Reason: Hypotension Fentanyl (Sublimaze) 100 mcg EPIDUR Q3H PRN PRN Reason: Pain Last Admin: 08/23/16 03:48 Dose: 100 mcg Fentanyl/Bupivacaine HCl (Fentanyl/Bupivacaine/Ns 2 Mcg-0.125% 100 Ml) 100 ml EPIDUR ASDIRECTED RUDDY Last Admin: 08/23/16 03:49 Dose: 100 ml Ampicillin Sodium 1 gm/ Sodium (Chloride) 100 mls @ 200 mls/hr IV Q4H RUDDY Last Admin: 08/23/16 02:57 Dose: 200 mls/hr Lactated Ringer's (Ringers, Lactated) 1,000 mls @ 100 mls/hr IV ASDIRECTED [facility] Last Admin: 08/23/16 03:21 Dose: 500 mls/hr Oxytocin/Lactated Ringer's (Pitocin In Lr 10 Units/1,000 Ml) 10 unit in 1,000 mls @ 500 mls/hr IV TITRATE [facility] Lidocaine HCl (Xylocaine 1%) 10 ml INJECT ONETIME PRN PRN Reason: Perineal Comfort Measure Nalbuphine HCl (Nubain) 10 mg IVPUSH Q2H PRN PRN Reason: Pain (moderate 4-6) Ondansetron HCl (Zofran) 4 mg IVPUSH ONETIME PRN PRN Reason: Nausea/Vomiting Sodium Chloride (Saline Flush) 10 ml FLUSH ASDIRECTED PRN PRN Reason: Keep Vein Open Discontinued Medications Ampicillin Sodium 2 gm/ Sodium (Chloride) 100 mls @ 200 mls/hr IV ONETIME ONE Stop: 08/23/16 02:29 Last Admin: 08/23/16 02:44 Dose: Not Given Sodium Chloride (Normal Saline) Confirm Administered Dose 200 mls @ as directed .ROUTE .STK-MED ONE Stop: 08/23/16 02:41 Last Admin: 08/23/16 03:00 Dose: Not Given
[2016-08-23] MEDS ORDERED: Hydrocortisone Acetate 25 MG Supp RECTAL PRN (07:59)
[2016-08-23] MEDS ORDERED: Benzocaine/Menthol 20%-0.5% Spray 56 GM Canister TOP PRN (07:59)
[2016-08-23] MEDS ORDERED: Witch Hazel Medicated Pads 100/Jar TOP PRN (07:59)
[2016-08-23] MEDS ORDERED: Bupivacaine 0.25% 10 ML SDV ONE (07:59)
[2016-08-23] MEDS ORDERED: Lanolin 100% Cream 7 GM Tube TOP PRN (07:59)
--- NOTE | 2016-08-23 08:02 | PCM.LDHP ---
L&D History of Present Illness - General Date of Service: 08/23/16 Admit Problem/Dx: Admission Diagnosis/Problem Admission Diagnosis/Problem Source of Information: Patient History Limitations: Reports: No Limitations - History of Present Illness Introduction:: 21 year old at 40w5 here in for TOLAC. Painful contractions started at 10 pm. Pain Score: 9 - Related Data Allergies/Adverse Reactions: Allergies Allergy/AdvReac Type Severity Reaction Status Date / Time No Known Allergies Allergy Verified 05/06/16 17:40 Home Medications: Home Meds Vits #90/Iron Fum/FA [ Formula] 1 each PO DAILY 11/10/14 [ History] Acetaminophen/oxyCODONE [Percocet 325-5 MG] 1 tab PO Q8H PRN #15 tablet [Rx] Docusate Sodium [Colace] 100 mg PO Q12H PRN #50 cap 11/13/14 [Rx] Past Medical History HEENT History: Reports: None Respiratory History: Reports: Asthma, Other (See Below) Other Respiratory History: As a child Gastrointestinal History: Reports: None Genitourinary History: Reports: None 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: - Infectious Disease History Infectious Disease History: Reports: Chicken Pox - Past Surgical History HEENT Surgical History: Reports: Adenoidectomy, Oral Surgery Social & Family History - Family History Family Medical History: Noncontributory - Tobacco Use Smoking Status *Q: Never Smoker Second Hand Smoke Exposure: No - Caffeine Use Caffeine Use: Reports: None Caffeine Use Comment: 2 cups per day - Recreational Drug Use Recreational Drug Use: No - Living Situation & Occupation Living situation: Reports: Occupation: Unemployed H&P Review of Systems - Review of Systems: Review Of Systems: See Below General: Reports: No Symptoms HEENT: Reports: No Symptoms Pulmonary: Reports: No Symptoms Cardiovascular: Reports: No Symptoms Gastrointestinal: Reports: No Symptoms Genitourinary: Reports: No Symptoms Musculoskeletal: Reports: No Symptoms Skin: Reports: No Symptoms Psychiatric: Reports: No Symptoms Neurological: Reports: No Symptoms Hematologic/Lymphatic: Reports: No Symptoms Immunologic: Reports: No Symptoms L&D Exam - Exam Exam: See Below - Vital Signs Vital Signs: Last Vital Signs Temp 37.0 C 08/23/16 02:12 Pulse 87 08/23/16 02:12 Resp 16 08/23/16 03:59 BP 127/83 08/23/16 02:12 Pulse Ox Weight: 95.527 kg - OB Specific Contraction Intensity: Moderate to Strong Movement: Active Heart Tones: Present Heart Tones per Min: 150 Presentation: Vertex - Stewart Score Stewart Score Cervix Position: Midposition Stewart Score Consistency: Medium Stewart Score Effacement: 31-50% Stewart Score Dilation: > 5 cm Stewart Score Infant's Station: -1 ,0 Stewart Score Total: 8 - Exam General: Alert, Oriented HEENT: Conjunctiva Clear Neck: Supple, Trachea Midline Lungs: Clear to Auscultation Cardiovascular: Regular Rate Abdomen: Normal Bowel Sounds, Soft Genitourinary: Normal external exam Back Exam: Normal Inspection, Full Range of Motion Extremities: Normal Inspection Skin: Warm, Dry Neurological: Cranial Nerves Intact, Reflexes Equal Bilateral Psychiatric: Alert, Normal Affect, Normal Mood - Patient Data Lab Results last 24 hrs: Laboratory Results - last 24 hr 08/23/16 08/23/16 Range/Units 02:24 02:24 WBC 11.27 H (3.98-10.04) K/mm3 RBC 4.82 (3.98-5.22) M/mm3 Hgb 12.5 (11.2-15.7) gm/L Hct 38.6 (34.1-44.9) % MCV 80.1 (79.4-94.8) fl MCH 25.9 (25.6-32.2) pg MCHC 32.4 (32.2-35.5) g/dl RDW Std Deviation 44.5 (36.4-46.3) fL Plt Count 348 (182-369) K/mm3 MPV 9.0 L (9.4-12.3) fl Blood Type O POSITIVE Gel Antibody Screen Negative Result Diagrams: 08/23/16 02:24 Problem List Initiated/Reviewed/Updated: Yes Orders Last 24hrs: Active Orders 24 hr Category Date Time Status Patient Status Manage Transfer [TRANSFER] Routine ADT 08/23/16 07:51 Ordered Activity as Tolerated [RC] PFP Care 08/23/16 02:12 Active Heart Tones [RC] ASDIRECTED Care 08/23/16 02:13 Active Peripheral IV Care [RC] . DIRECTED Care 08/23/16 02:13 Active Ampicillin 1 gm Med 08/23/16 06:00 Active Sodium Chloride 0.9% [Normal Saline] 100 ml IV Q4H Bupivacaine/fentaNYL/NS [fentaNYL/Bupivacaine/NS 2 MCG- Med 08/23/16 03:30 Active 0.125% 100 ML] 100 ml EPIDUR ASDIRECTED Lactated Ringers [Ringers, Lactated] 1,000 ml Med 08/23/16 02:15 Active IV ASDIRECTED Lidocaine 1% [Xylocaine 1%] Med 08/23/16 02:12 Active 10 ml INJECT ONETIME PRN Nalbuphine [Nubain] Med 08/23/16 02:12 Active 10 mg IVPUSH Q2H PRN Ondansetron [Zofran] Med 08/23/16 03:19 Active 4 mg IVPUSH ONETIME PRN Oxytocin/Lactated Ringers [Pitocin in LR 10 Units/1,000 Med 08/23/16 02:15 Active ML] 10 unit in 1,000 ml IV TITRATE Sodium Chloride 0.9% [Saline Flush] Med 08/23/16 02:12 Active 10 ml FLUSH ASDIRECTED PRN diphenhydrAMINE [Benadryl] Med 08/23/16 03:19 Active 25 mg IVPUSH Q6H PRN ePHEDrine [ePHEDrine Sulfate] Med 08/23/16 03:19 Active 5 mg IVPUSH ASDIRECTED PRN fentaNYL [Sublimaze] Med 08/23/16 03:19 Active 100 mcg EPIDUR Q3H PRN Electronic Heart Tones Ext w TOCO [WOMSER] Oth 08/23/16 02:12 Ordered Routine Electronic Heart Tones Internal [WOMSER] Per Unit Oth 08/23/16 02:12 Ordered Routine Peripheral IV Insertion Adult [OM.PC] Routine Oth 08/23/16 02:12 Ordered Resuscitation Status Routine Resus Stat 08/23/16 02:12 Ordered
[2016-08-23] MEDS: Ibuprofen 600 MG Tab PO PRN ×2 (09:00→21:14)
[2016-08-23] MEDS: Docusate Sodium 100 MG Cap PO SCH ×2 (09:00→21:13)
[2016-08-23] MEDS ORDERED: Simethicone 80 MG Tab.Chew PO PRN (18:17)
--- NOTE | 2016-08-24 08:02 | PCM.PNPP ---
- General Info Date of Service: 08/24/16 Functional Status: Reports: pain controlled - Review of Systems General: Reports: No Symptoms HEENT: 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 Pulmonary: 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 Cardiovascular: Reports: No Symptoms Gastrointestinal: Reports: No symptoms Genitourinary: 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 Musculoskeletal: 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 Skin: 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 Neurological: Reports: No Symptoms Psychiatric: 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 - General Info Date of Service: 08/24/16 - Patient Data Vital Signs - most recent: Last Vital Signs Temp 36.9 C 08/24/16 04:02 Pulse 76 08/24/16 04:02 Resp 15 08/24/16 04:02 BP 99/55 L 08/24/16 04:02 Pulse Ox 99 08/24/16 04:02 Weight - most recent: 95.527 kg Med Orders - Current: Current Medications Benzocaine/Menthol (Dermoplast Pain Relief [place]) 0 gm TOP ASDIRECTED PRN PRN Reason: Perineal Comfort Measure Last Admin: 08/23/16 09:00 Dose: 56 gm Docusate Sodium (Colace) 100 mg PO BID RUDDY Last Admin: 08/23/16 21:13 Dose: 100 mg Emollient Ointment (Lansinoh Hpa) 0 gm TOP ASDIRECTED PRN PRN Reason: Sore Nipples Hydrocortisone Acetate (Anucort-Hc) 25 mg RECTAL BID PRN PRN Reason: Hemorrhoid pain Ibuprofen (Motrin) 600 mg PO Q6H PRN PRN Reason: Mild pain or fever Last Admin: 08/23/16 21:14 Dose: 600 mg Simethicone (Simethicone) 80 mg PO Q4H PRN PRN Reason: Gas Last Admin: 08/23/16 18:27 Dose: 80 mg Witch Sharee (Tucks) 1 pad TOP ASDIRECTED PRN PRN Reason: Hemorrhoid pain Last Admin: 08/23/16 09:00 Dose: 1 pad Discontinued Medications Diphenhydramine HCl (Benadryl) 25 mg IVPUSH Q6H PRN PRN Reason: Pruritis Ephedrine Sulfate (Ephedrine Sulfate) 5 mg IVPUSH ASDIRECTED PRN PRN Reason: Hypotension Fentanyl (Sublimaze) 100 mcg EPIDUR Q3H PRN PRN Reason: Pain Last Admin: 08/23/16 03:48 Dose: 100 mcg Fentanyl/Bupivacaine HCl (Fentanyl/Bupivacaine/Ns 2 Mcg-0.125% 100 Ml) 100 ml EPIDUR ASDIRECTED [facility] Last Admin: 08/23/16 03:49 Dose: 100 ml Ampicillin Sodium 2 gm/ Sodium (Chloride) 100 mls @ 200 mls/hr IV ONETIME ONE Stop: 08/23/16 02:29 Last Admin: 08/23/16 02:44 Dose: Not Given Ampicillin Sodium 1 gm/ Sodium (Chloride) 100 mls @ 200 mls/hr IV Q4H [facility] Last Admin: 08/23/16 06:32 Dose: 200 mls/hr Lactated Ringer's (Ringers, Lactated) 1,000 mls @ 100 mls/hr IV ASDIRECTED [facility] Last Admin: 08/23/16 05:08 Dose: 125 mls/hr Oxytocin/Lactated Ringer's (Pitocin In Lr 10 Units/1,000 Ml) 10 unit in 1,000 mls @ 500 mls/hr IV TITRATE [facility] Last Admin: 08/23/16 07:03 Dose: 500 mls/hr Sodium Chloride (Normal Saline) Confirm Administered Dose 200 mls @ as directed .ROUTE .STK-MED ONE Stop: 08/23/16 02:41 Last Admin: 08/23/16 03:00 Dose: Not Given Lidocaine HCl (Xylocaine 1%) 10 ml INJECT ONETIME PRN PRN Reason: Perineal Comfort Measure Nalbuphine HCl (Nubain) 10 mg IVPUSH Q2H PRN PRN Reason: Pain (moderate 4-6) Ondansetron HCl (Zofran) 4 mg IVPUSH ONETIME PRN PRN Reason: Nausea/Vomiting Sodium Chloride (Saline Flush) 10 ml FLUSH ASDIRECTED PRN PRN Reason: Keep Vein Open - Interaction Infant Disposition, : at Bedside Support Person: - Recovery Exam Fundal Tone: Firm Fundal Level: At Umbilicus Fundal Placement: Midline Lochia Amount: Small, Moderate Lochia Color: Rubra/Red Perineum Description: Hemorrhoids, Other (see below) Other Perinuem Description: 2' laceration with repair; tucks and dermoplast in use Episiotomy/Laceration: Approximated Bladder Status: Voiding Urinary Elimination: Voided - Exam General: alert, oriented HEENT: Pupils equal Neck: supple Lungs: Clear to auscultation, Normal respiratory effort Cardiovascular: Regular Rate, Regular Rhythm Abdomen: bowel sounds present, soft, no tenderness, no distension Extremities: no edema Skin: warm, dry, intact Wound/Incisions: healing well Neurological: no new focal deficit Psy/Mental Status: alert, normal affect, normal mood - Problem List Review Problem List Initiated/Reviewed/Updated: Yes - My Orders Last 24 Hours: My Active Orders 08/23/16 07:59 Activity as Tolerated [RC] PER UNIT ROUTINE Vital Signs [RC] 04,12,20 Benzocaine/Menthol [Dermoplast Pain Relief [place]] See Dose Instructions TOP ASDIRECTED PRN Hydrocortisone Acetate [Anucort-HC] 25 mg RECTAL BID PRN Ibuprofen [Motrin] 600 mg PO Q6H PRN Lanolin [Lansinoh HPA] See Dose Instructions TOP ASDIRECTED PRN Witch Sharee [Tucks] 1 pad TOP ASDIRECTED PRN Assess Lochia [WOMSER] Per Unit Routine Assess Uterine Involution [WOMSER] Per Unit Routine Breast Pump [WOMSER] Per Unit Routine Medication Administration Instruction [OM.PC] Routine Perineal Care [OM.PC] Per Unit Routine Sitz Bath [OM.PC] Per Unit Routine 08/23/16 08:00 Heat Therapy [OM.PC] PRN 08/23/16 09:00 Docusate Sodium [Colace] 100 mg PO BID 08/23/16 18:17 Simethicone 80 mg PO Q4H PRN 08/23/16 Lunch Regular Diet [DIET] 08/24/16 08:00 Heat Therapy [OM.PC] PRN - Assessment Assessment:: PPD1 s/p . Doing great. No issues.
[2016-08-24] MEDS: Docusate Sodium 100 MG Cap PO SCH (08:23)
[2016-08-24] MEDS: Ibuprofen 600 MG Tab PO PRN (08:23)
[2016-08-24 08:25] VITALS: BP 107/67
--- NOTE | 2016-08-29 06:20 | PCM.DCSUM1 ---
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 - Discharge Data Discharge Date: 08/24/16 Discharge Disposition: Home, Self-Care 01 Condition: Good - Patient Instructions Diet: Regular Diet as Tolerated Activity: No Strenuous Activities Driving: May Drive Today Showering/Bathing: May Shower Notify Provider of: Fever, Increased Pain, Swelling and Redness, Drainage, Nausea and/or Vomiting - Discharge Plan Home Medications: Home Meds Vits #90/Iron Fum/FA [ Formula] 1 each PO DAILY 11/10/14 [ History] Docusate Sodium [Colace] 100 mg PO Q12H PRN #50 cap 11/13/14 [Rx] Benzocaine/Menthol [Dermoplast Pain Relief [place]] 56 gm TOP ASDIRECTED PRN #0 canister 08/24/16 [Rx] Hydrocortisone Acetate [Anucort-HC] 25 mg RECTAL BID PRN #0 supp 08/24/16 [Rx] Ibuprofen [IJD: Ibuprofen] 600 mg PO Q6H PRN #0 tablet 08/24/16 [Rx] Simethicone 80 mg PO Q4H PRN #0 tab.chew 08/24/16 [Rx] Witch Sharee [Tucks] 1 pad TOP ASDIRECTED PRN #0 pad 08/24/16 [Rx] Patient Handouts: Home Care Instructions for Mom Referrals: Chip Mcduffie MD [Physician] - (Call to schedule appointment in 6 weeks. ) - Discharge Summary/Plan Comment DC Time >30 min.: No - General Info Date of Service: 08/24/16 Functional Status: Reports: pain controlled - Review of Systems General: Reports: No Symptoms HEENT: 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 Pulmonary: 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 Cardiovascular: Reports: No Symptoms Gastrointestinal: Reports: No symptoms Genitourinary: 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 Musculoskeletal: 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 Skin: 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 Neurological: Reports: No Symptoms Psychiatric: 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 - Patient Data Vitals - Most Recent: Last Vital Signs Temp 36.6 C 08/24/16 08:24 Pulse 79 08/24/16 08:24 Resp 16 08/24/16 08:24 BP 107/67 08/24/16 08:24 Pulse Ox 98 08/24/16 08:24 Weight - Most Recent: 95.527 kg Med Orders - Current: Current Medications Discontinued Medications Benzocaine/Menthol (Dermoplast Pain Relief [place]) 0 gm TOP ASDIRECTED PRN PRN Reason: Perineal Comfort Measure Last Admin: 08/23/16 09:00 Dose: 56 gm Bupivacaine HCl (Sensorcaine-Mpf 0.25%) 10 ml .ROUTE .STK-MED ONE Stop: 08/23/16 08:00 Diphenhydramine HCl (Benadryl) 25 mg IVPUSH Q6H PRN PRN Reason: Pruritis Docusate Sodium (Colace) 100 mg PO BID [facility] Last Admin: 08/24/16 08:23 Dose: 100 mg Emollient Ointment (Lansinoh Hpa) 0 gm TOP ASDIRECTED PRN PRN Reason: Sore Nipples Ephedrine Sulfate (Ephedrine Sulfate) 5 mg IVPUSH ASDIRECTED PRN PRN Reason: Hypotension Fentanyl (Sublimaze) 100 mcg EPIDUR Q3H PRN PRN Reason: Pain Last Admin: 08/23/16 03:48 Dose: 100 mcg Fentanyl/Bupivacaine HCl (Fentanyl/Bupivacaine/Ns 2 Mcg-0.125% 100 Ml) 100 ml EPIDUR ASDIRECTED [facility] Last Admin: 08/23/16 03:49 Dose: 100 ml Hydrocortisone Acetate (Anucort-Hc) 25 mg RECTAL BID PRN PRN Reason: Hemorrhoid pain Ampicillin Sodium 2 gm/ Sodium (Chloride) 100 mls @ 200 mls/hr IV ONETIME ONE Stop: 08/23/16 02:29 Last Admin: 08/23/16 02:44 Dose: Not Given Ampicillin Sodium 1 gm/ Sodium (Chloride) 100 mls @ 200 mls/hr IV Q4H [facility] Last Admin: 08/23/16 06:32 Dose: 200 mls/hr Lactated Ringer's (Ringers, Lactated) 1,000 mls @ 100 mls/hr IV ASDIRECTED [facility] Last Admin: 08/23/16 05:08 Dose: 125 mls/hr Oxytocin/Lactated Ringer's (Pitocin In Lr 10 Units/1,000 Ml) 10 unit in 1,000 mls @ 500 mls/hr IV TITRATE [facility] Last Admin: 08/23/16 07:03 Dose: 500 mls/hr Sodium Chloride (Normal Saline) Confirm Administered Dose 200 mls @ as directed .ROUTE .STK-MED ONE Stop: 08/23/16 02:41 Last Admin: 08/23/16 03:00 Dose: Not Given Ibuprofen (Motrin) 600 mg PO Q6H PRN PRN Reason: Mild pain or fever Last Admin: 08/24/16 08:23 Dose: 600 mg Lidocaine HCl (Xylocaine 1%) 10 ml INJECT ONETIME PRN PRN Reason: Perineal Comfort Measure Nalbuphine HCl (Nubain) 10 mg IVPUSH Q2H PRN PRN Reason: Pain (moderate 4-6) Ondansetron HCl (Zofran) 4 mg IVPUSH ONETIME PRN PRN Reason: Nausea/Vomiting Simethicone (Simethicone) 80 mg PO Q4H PRN PRN Reason: Gas Last Admin: 08/23/16 18:27 Dose: 80 mg Sodium Chloride (Saline Flush) 10 ml FLUSH ASDIRECTED PRN PRN Reason: Keep Vein Open Witch Sharee (Tucks) 1 pad TOP ASDIRECTED PRN PRN Reason: Hemorrhoid pain Last Admin: 08/23/16 09:00 Dose: 1 pad - Exam General: Reports: alert, oriented HEENT: Reports: Pupils equal, Pupils reactive, EOMI, Mucous membr. moist/pink Neck: Reports: supple Lungs: Reports: Clear to auscultation, Normal respiratory effort Cardiovascular: Reports: Regular Rate, Regular Rhythm Abdomen: Reports: bowel sounds present, soft, no tenderness, no distension (Female) Exam: Normal External Exam, Normal Speculum Exam, Normal Bimanual Exam Back Exam: Reports: Normal Inspection, Full Range of Motion Extremities: Reports: no edema, normal pulses Skin: Reports: warm, dry, intact Wound/Incisions: Reports: healing well Neurological: Reports: no new focal deficit Psy/Mental Status: Reports: alert, normal affect, normal mood *Q Meaningful Use (DIS) - VTE *Q VTE Criteria *Q: - Stroke *Q Stroke Criteria *Q: - AMI *Q AMI Criteria *Q:
== END 2016-08-24 12:30 | disposition home or self-care (01) | DRG 775 ==
LOC: JD.OBCHECK 01:48 → JD.OB 01:52 → JD.OBCHECK 02:37 → JD.OB 02:38 → OBSVTOIN 07:03
PROVIDERS: ADMIT Obstetrics & Gynecology; ATTEND Obstetrics & Gynecology
PROC: 10E0XZZ Delivery of Products of Conception, External Approach (ICD-10-PCS; principal; 2016-08-23)
PROC: 0KQM0ZZ Repair Perineum Muscle, Open Approach (ICD-10-PCS; 2016-08-23)
PROC: 10907ZC Drainage of Amniotic Fluid, Therapeutic from Products of Conception, Via Natural or Artificial Opening (ICD-10-PCS; 2016-08-23)
PROC: 00HU33Z Insertion of Infusion Device into Spinal Canal, Percutaneous Approach (ICD-10-PCS; 2016-08-23)
DX: O34.219 Maternal care for unspecified type scar from previous cesarean delivery (principal); O99.824 Streptococcus B carrier state complicating childbirth; O70.1 Second degree perineal laceration during delivery; Z3A.40 40 weeks gestation of pregnancy; Z37.0 Single live birth; N85.8 Other specified noninflammatory disorders of uterus
CPT/HCPCS: 01967; 36415; 85027; 86850; 86900; 86901; A9270-GY; J0290; J2590; J3010; J7030; J7120

== ENCOUNTER 2018-11-16 08:00 | Inpatient (IN) | payer SELFPAY ==
--- NOTE | 2018-11-08 15:41 | PCM.LDHP ---
L&D History of Present Illness - General Date of Service: 11/08/18 Admit Problem/Dx: Admission Diagnosis/Problem Admission Diagnosis/Problem Source of Information: Patient History Limitations: Reports: No Limitations - History of Present Illness Introduction:: 23-year-old RAJENDRA 11/13/18 estimated gestational age [id number] weeks and 2 days. Estimated gestational age at delivery with which is planned for 11/17/18 will be 40 weeks and 4 days. Patient desires attempted trial of labor after /vaginal after . Patient had section 11/10/14 at 41 weeks estimated gestational age 9 lbs. 7 oz. baby. Subsequent vaginal delivery 08/23/16. Patient desires attempted vaginal delivery but if no vaginal delivery by 11/17/18 will undergo repeat section. Group B strep carrier 04/05/18 blood type O positive, antibody screen negative. Hemoglobin/hematocrit 12.5/38.7 with platelets 327,000. Rubella immune, VDRL nonreactive. Hepatitis B surface antigen and HIV negative. GC and chlamydia probe negative. 08/23/18 hemoglobin/hematocrit 10.4/32.9 platelets 331,000. One hour OB glucose screen 111. RPR nonreactive. 09/27/18 hemoglobin/hematocrit 10.9/34.2 platelets 364,000. Patient group B strep positive urine culture were 4000 colony forming units. Plan repeat section 11/17/18. Improves with: Reports: None Worsens with: Reports: None Associated Symptoms: Reports: N - Related Data Allergies/Adverse Reactions: Allergies Allergy/AdvReac Type Severity Reaction Status Date / Time No Known Allergies Allergy Verified 05/06/16 17:40 Home Medications: Home Meds Vit 90/Iron Fum/Folic [ Formula] 1 each PO DAILY 11/10/14 [ History] Docusate Sodium [Colace] 100 mg PO Q12H PRN #50 cap 11/13/14 [Rx] Benzocaine/Menthol [Dermoplast Pain Relief [place]] 56 gm TOP ASDIRECTED PRN #0 canister 08/24/16 [Rx] Hydrocortisone Acetate [Anucort-HC] 25 mg RECTAL BID PRN #0 supp 08/24/16 [Rx] Ibuprofen [IJD: Ibuprofen] 600 mg PO Q6H PRN #0 tablet 08/24/16 [Rx] Simethicone 80 mg PO Q4H PRN #0 tab.chew 08/24/16 [Rx] Heriberto Tolliver [Tucks] 1 pad TOP ASDIRECTED PRN #0 pad 08/24/16 [Rx] Past Medical History HEENT History: Reports: None Respiratory History: Reports: Asthma, Other (See Below) Other Respiratory History: As a child Gastrointestinal History: Reports: None Genitourinary History: Reports: None 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: - Infectious Disease History Infectious Disease History: Reports: Chicken Pox - Past Surgical History HEENT Surgical History: Reports: Adenoidectomy, Oral Surgery Social & Family History - Family History Family Medical History: Noncontributory - Caffeine Use Caffeine Use: Reports: None Caffeine Use Comment: 2 cups per day - Living Situation & Occupation Living situation: Reports: Occupation: Unemployed H&P Review of Systems - Review of Systems: Review Of Systems: See Below General: Reports: No Symptoms HEENT: Reports: No Symptoms Pulmonary: Reports: No Symptoms Cardiovascular: Reports: No Symptoms Gastrointestinal: Reports: No Symptoms Genitourinary: Reports: No Symptoms Musculoskeletal: Reports: No Symptoms Skin: Reports: No Symptoms Psychiatric: Reports: No Symptoms Neurological: Reports: No Symptoms Hematologic/Lymphatic: Reports: No Symptoms Immunologic: Reports: No Symptoms L&D Exam - Exam Exam: See Below - OB Specific Fundal Height In cm: 39 Movement: Active Heart Tones: Present Heart Tones per Min: 136 (11/08/18) Heart Rate (FHR) Variability: Moderate (6-25 bmp) Presentation: Vertex - Stewart Score Stewart Score Cervix Position: Posterior Stewart Score Consistency: Soft Stewart Score Effacement: 0-30% Stewart Score Dilation: 1-2 cm Stewart Score Infant's Station: -1 ,0 Stewart Score Total: 5 - Exam General: Alert, Oriented HEENT: Conjunctiva Clear, Mucosa Moist & [place] Neck: Supple, Trachea Midline Lungs: Clear to Auscultation, Normal Respiratory Effort Cardiovascular: Regular Rate, Regular Rhythm GI/Abdominal Exam: Normal Bowel Sounds, Soft, Non-Tender Genitourinary: Normal external exam Extremities: Normal Inspection, Normal Range of Motion, Non-Tender, No Pedal Edema, Normal Capillary Refill Skin: Warm, Dry, Intact Psychiatric: Alert, Normal Affect, Normal Mood - Problem List (1) 39 weeks gestation of SNOMED Code(s): 14437786 ICD Code: Z3A.39 - 39 WEEKS GESTATION OF Status: Acute (2) 40 weeks gestation of SNOMED Code(s): 56326841 ICD Code: Z3A.40 - 40 WEEKS GESTATION OF Status: Acute (3) Carrier of group B Streptococcus SNOMED Code(s): 7953378397204 ICD Code: Z22.330 - CARRIER OF GROUP B STREPTOCOCCUS Status: Acute (4) Previous section complicating , antepartum condition or complication SNOMED Code(s): 154492194, 560613645 ICD Code: O34.219 - MATERNAL CARE FOR UNSP TYPE SCAR FROM PREVIOUS DEL Status: Acute Problem List Initiated/Reviewed/Updated: No Assessment/Plan Comment:: Plan repeat section Thursday11/17/18.
[2018-11-17] MEDS ORDERED: Oxytocin 10 Units/1 ML SDV ONE (08:28)
[2018-11-17] MEDS ORDERED: Lactated Ringers 2,000 ML ONE (08:28)
[2018-11-17] MEDS ORDERED: Ketorolac 30 MG/ML SDV ONE (08:28)
[2018-11-17] MEDS ORDERED: ceFAZolin 1 GM Vial ONE (08:28)
[2018-11-17] MEDS ORDERED: Ondansetron 4 MG/2 ML SDV ONE (08:28)
[2018-11-17] MEDS ORDERED: Morphine PF 10 MG/10 ML SDV ONE (08:29)
[2018-11-17] MEDS ORDERED: Phenylephrine/Normal Saline 100 MCG/ML 10 ML Syringe ONE (08:29)
[2018-11-17] MEDS ORDERED: Sodium Chloride 0.9% 10 ML Syringe FLUSH PRN (09:43)
[2018-11-17] MEDS ORDERED: Nalbuphine 10 MG/1 ML Vial IVPUSH PRN (09:43)
[2018-11-17] MEDS ORDERED: Oxytocin/Lactated Ringers 10 UNIT/1,000 ML BAG IV SCH (10:00)
[2018-11-17] MEDS ORDERED: Ampicillin 2 GM in Sodium Chloride 0.9% 100 ML IV ONE (10:00)
[2018-11-17] MEDS ORDERED: fentaNYL 100 MCG/2 ML SDV EPIDUR PRN (10:03)
[2018-11-17] MEDS ORDERED: Ondansetron 4 MG/2 ML SDV IVPUSH PRN (10:03)
[2018-11-17] MEDS ORDERED: ePHEDrine 50 MG/ML SDV IVPUSH PRN (10:03)
--- NOTE | 2018-11-17 10:06 | PCM.PREANE ---
Preanesthetic Assessment - Anesthesia/Transfusion/Family Hx Anesthesia History: Prior Anesthesia Without Reaction Family History of Anesthesia Reaction: No Transfusion History: No Prior Transfusion(s) Intubation History: Unknown - Review of Systems General: No Symptoms Pulmonary: No Symptoms (Asthma past childhood history) Cardiovascular: No Symptoms Gastrointestinal: No Symptoms, Constipation Neurological: No Symptoms Other: Reports: None - Physical Assessment NPO Status Date: 11/17/18 NPO Status Time: 11:15 Vital Signs: HR=82 BP: 109/72 Temp: 36.6 Resp: 16 Sat's: 99% Height: 1.7 m Weight: 99.025 kg ASA Class: 2 Mental Status: Alert & Oriented x3 Airway Class: Mallampati = 2 Dentition: Reports: Normal Dentition, Caries Thyro-Mental Finger Breadths: 3 Mouth Opening Finger Breadths: 3 ROM/Head Extension: Full Lungs: Clear to Auscultation, Normal Respiratory Effort Cardiovascular: Regular Rate, Regular Rhythm, No Murmurs - Lab Values: All lab values reviewed and noted and within acceptable ranges to proceed with epidural if desired. - Allergies Allergies/Adverse Reactions: Allergies Allergy/AdvReac Type Severity Reaction Status Date / Time No Known Allergies Allergy Verified 05/06/16 17:40 - Anesthesia Plan Pre-Op Medication Ordered: None - Acknowledgements Anesthesia Type Planned: Spinal, Epidural Pt an Appropriate Candidate for the Planned Anesthesia: Yes Alternatives and Risks of Anesthesia Discussed w Pt/Guardian: Yes Pt/Guardian Understands and Agrees with Anesthesia Plan: Yes PreAnesthesia Questionnaire HEENT History: Reports: None Respiratory History: Reports: Asthma, Other (See Below) Other Respiratory History: As a child Gastrointestinal History: Reports: None Genitourinary History: Reports: None 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: - Infectious Disease History Infectious Disease History: Reports: Chicken Pox - Past Surgical History HEENT Surgical History: Reports: Adenoidectomy, Oral Surgery - HOME MEDS Home Medications: Home Meds Vit 90/Iron Fum/Folic [ Formula] 1 each PO DAILY 11/10/14 [ History] Docusate Sodium [Colace] 100 mg PO Q12H PRN #50 cap 11/13/14 [Rx] - CURRENT (IN HOUSE) MEDS Current Meds: Current Medications Ephedrine Sulfate (Ephedrine Sulfate) 5 mg IVPUSH ASDIRECTED PRN PRN Reason: Hypotension Fentanyl (Sublimaze) 100 mcg EPIDUR Q3H PRN PRN Reason: Pain Fentanyl/Bupivacaine HCl (Fentanyl/Bupivacaine/Ns 2 Mcg-0.125% 100 Ml) 100 ml EPIDUR ASDIRECTED [facility] Ampicillin Sodium 2 gm/ Sodium (Chloride) 100 mls @ 200 mls/hr IV ONETIME ONE Stop: 11/17/18 10:29 Ampicillin Sodium 1 gm/ Sodium (Chloride) 100 mls @ 200 mls/hr IV Q4H [facility] Lactated Ringer's (Ringers, Lactated) 1,000 mls @ 100 mls/hr IV ASDIRECTED [facility] Oxytocin/Lactated Ringer's (Pitocin In Lr 10 Units/1,000 Ml) 10 unit in 1,000 mls @ 12 mls/hr IV TITRATE [facility]; Protocol Phenylephrine HCl 1 mg/ Sodium (Chloride) 10.1 mls @ 1 mls/sec IV TITRATE [facility]; Protocol Nalbuphine HCl (Nubain) 10 mg IVPUSH Q2H PRN PRN Reason: Pain Ondansetron HCl (Zofran) 4 mg IVPUSH ONETIME PRN PRN Reason: Nausea/Vomiting Sodium Chloride (Saline Flush) 10 ml FLUSH ASDIRECTED PRN PRN Reason: Keep Vein Open Discontinued Medications Cefazolin Sodium (Ancef) Confirm Administered Dose 2 gm .ROUTE .STK-MED ONE Stop: 11/17/18 08:29 Lactated Ringer's (Ringers, Lactated) Confirm Administered Dose 2,000 mls @ as directed .ROUTE .STK-MED ONE Stop: 11/17/18 08:29 Ketorolac Tromethamine (Toradol) Confirm Administered Dose 30 mg .ROUTE .STK- MED ONE Stop: 11/17/18 08:29 Morphine Sulfate (Duramorph Pf) Confirm Administered Dose 10 mg .ROUTE .STK-MED ONE Stop: 11/17/18 08:30 Ondansetron HCl (Zofran) Confirm Administered Dose 4 mg .ROUTE .STK-MED ONE Stop: 11/17/18 08:29 Oxytocin (Pitocin) Confirm Administered Dose 20 unit .ROUTE .STK-MED ONE Stop: 11/17/18 08:29 Phenylephrine HCl (Phenylephrine In Ns 100 Mcg/Ml) Confirm Administered Dose 1 mg .ROUTE .STK-MED ONE Stop: 11/17/18 08:30
[2018-11-17] MEDS: Lactated Ringers 1,000 ML IV SCH ×2 (10:09→13:59)
[2018-11-17] MEDS ORDERED: Bupivacaine/fentaNYL/NS 100 ML Bag EPIDUR SCH (10:15)
[2018-11-17] MEDS ORDERED: Phenylephrine 1 MG in Sodium Chloride 0.9% 10 ML IV SCH (10:15)
--- NOTE | 2018-11-17 11:48 | PCM.SN ---
- Free Text/Narrative Note: Amniotomy at 1140 Clear fluid, cervix 3 cm, 50%, soft, mid-position, vertex 0 station.
[2018-11-17] MEDS ORDERED: Ampicillin 1 GM in Sodium Chloride 0.9% 100 ML IV SCH (14:00)
--- NOTE | 2018-11-17 15:43 | PCM.DEL ---
L & D Note - General Info Date of Service: 11/17/18 Mother's Due Date: 11/13/18 - Delivery Note Labor: Augmented by ARM, Augmented by Oxytocin Delivery Outcome: Livebirth (Female liveborn 152411/17/18 APARNA, nuchal cord x 1, reduced over head. Weight 3490 g/7 lbs 11.1 oz, APGARs 9/9) Infant Delivery Method: Spontaneous Vaginal Delivery-Single Infant Delivery Mode: Spontaneous Presentation: Right Occiput Anterior (APARNA) Nuchal Cord: Present (x1 reduced over head) Prep: Povidone-Iodine (Betadine Anesthesia Type: Epidural Amniotic Fluid Description: Clear Episiotomy Type: None Laceration: 2nd Degree (right sulcus just inside introitus) Suture type: Other (monocryl x1) Suture size: 3-0 Placenta: Intact, Spontaneous (152811/17/18 central cord insertion intack examined discarded) Cord: 3 Vessels Estimated Blood Loss: 250 Resuscitation Needed: No [place]: Suctioned, Bulb Syringe, Cathether (4 mls clear mucus), Stimulated, Warmed, [place] Used, Warmer Used Provider: Chip Mcduffie Score 1 min: 9 Score 5 min: 9 - General Info Date of Service: 11/17/18 Functional Status: Reports: Pain Controlled - Review of Systems General: Reports: No Symptoms HEENT: Reports: No Symptoms Pulmonary: Reports: No Symptoms Cardiovascular: Reports: No Symptoms Gastrointestinal: Reports: No Symptoms Genitourinary: Reports: No Symptoms Musculoskeletal: Reports: No Symptoms Skin: Reports: No Symptoms Neurological: Reports: No Symptoms Psychiatric: Reports: No Symptoms - Patient Data Vitals - Most Recent: Last Vital Signs Temp 97.8 F 11/17/18 09:43 Pulse 86 11/17/18 10:31 Resp 16 11/17/18 09:43 BP 120/58 L 11/17/18 10:31 Pulse Ox Weight - Most Recent: 218 lb 5 oz I&O - Last 24 Hours: Intake & Output 11/17/18 11/17/18 11/17/18 06:59 14:59 22:59 Intake Total 1320 Balance 1320 Lab Results Last 24 Hours: Laboratory Results - last 24 hr 11/17/18 11/17/18 11/17/18 Range/Units 10:00 10:00 10:00 WBC 11.30 H (3.98-10.04) K/mm3 RBC 4.59 (3.98-5.22) M/mm3 Hgb 12.4 (11.2-15.7) gm/L Hct 37.4 (34.1-44.9) % MCV 81.5 (79.4-94.8) fl MCH 27.0 (25.6-32.2) pg MCHC 33.2 (32.2-35.5) g/dl RDW Std Deviation 51.1 H (36.4-46.3) fL Plt Count 289 (182-369) K/mm3 MPV 8.9 L (9.4-12.3) fl Neut % (Auto) 75.8 H (34.0-71.1) % Lymph % (Auto) 17.4 L (19.3-51.7) % [place] % (Auto) 6.1 (4.7-12.5) % Eos % (Auto) 0.4 L (0.7-5.8) Baso % (Auto) 0.1 (0.1-1.2) % Neut # (Auto) 8.56 H (1.56-6.13) K/mm3 Lymph # (Auto) 1.97 (1.18-3.74) K/mm3 [place] # (Auto) 0.69 H (0.24-0.36) K/mm3 Eos # (Auto) 0.05 (0.04-0.36) K/mm3 Baso # (Auto) 0.01 (0.01-0.08) K/mm3 RPR Non-reactive (NONREACTIVE) Blood Type O POSITIVE Gel Antibody Screen Negative Med Orders - Current: Current Medications Ephedrine Sulfate (Ephedrine Sulfate) 5 mg IVPUSH ASDIRECTED PRN PRN Reason: Hypotension Fentanyl (Sublimaze) 100 mcg EPIDUR Q3H PRN PRN Reason: Pain Last Admin: 11/17/18 13:35 Dose: 100 mcg Fentanyl/Bupivacaine HCl (Fentanyl/Bupivacaine/Ns 2 Mcg-0.125% 100 Ml) 100 ml EPIDUR ASDIRECTED [facility] Last Admin: 11/17/18 13:35 Dose: 100 ml Ampicillin Sodium 1 gm/ Sodium (Chloride) 100 mls @ 200 mls/hr IV Q4H [facility] Last Admin: 11/17/18 13:43 Dose: 200 mls/hr Lactated Ringer's (Ringers, Lactated) 1,000 mls @ 100 mls/hr IV ASDIRECTED [facility] Last Infusion: 11/17/18 14:25 Dose: 100 mls/hr Oxytocin/Lactated Ringer's (Pitocin In Lr 10 Units/1,000 Ml) 10 unit in 1,000 mls @ 12 mls/hr IV TITRATE [facility]; Protocol Last Titration: 11/17/18 12:18 Dose: 6 munits/min, 36 mls/hr Phenylephrine HCl 1 mg/ Sodium (Chloride) 10.1 mls @ 1 mls/sec IV TITRATE [facility]; Protocol Nalbuphine HCl (Nubain) 10 mg IVPUSH Q2H PRN PRN Reason: Pain Ondansetron HCl (Zofran) 4 mg IVPUSH ONETIME PRN PRN Reason: Nausea/Vomiting Sodium Chloride (Saline Flush) 10 ml FLUSH ASDIRECTED PRN PRN Reason: Keep Vein Open Discontinued Medications Cefazolin Sodium (Ancef) Confirm Administered Dose 2 gm .ROUTE .STK-MED ONE Stop: 11/17/18 08:29 Lactated Ringer's (Ringers, Lactated) Confirm Administered Dose 2,000 mls @ as directed .ROUTE .STK-MED ONE Stop: 11/17/18 08:29 Ampicillin Sodium 2 gm/ Sodium (Chloride) 100 mls @ 200 mls/hr IV ONETIME ONE Stop: 11/17/18 10:29 Last Admin: 11/17/18 10:09 Dose: 200 mls/hr Ketorolac Tromethamine (Toradol) Confirm Administered Dose 30 mg .ROUTE .STK- MED ONE Stop: 11/17/18 08:29 Morphine Sulfate (Duramorph Pf) Confirm Administered Dose 10 mg .ROUTE .STK-MED ONE Stop: 11/17/18 08:30 Ondansetron HCl (Zofran) Confirm Administered Dose 4 mg .ROUTE .STK-MED ONE Stop: 11/17/18 08:29 Oxytocin (Pitocin) Confirm Administered Dose 20 unit .ROUTE .STK-MED ONE Stop: 11/17/18 08:29 Phenylephrine HCl (Phenylephrine In Ns 100 Mcg/Ml) Confirm Administered Dose 1 mg .ROUTE .STK-MED ONE Stop: 11/17/18 08:30 - Exam Quality Assessment: DVT Prophylaxis General: Alert HEENT: Pupils Equal, Mucous Membr. Moist/[place] Neck: Supple Lungs: Clear to Auscultation, Normal Respiratory Effort Cardiovascular: Regular Rate, Regular Rhythm GI/Abdominal Exam: Normal Bowel Sounds Extremities: Normal Inspection, Normal Range of Motion, Non-Tender, No Pedal Edema, Normal Capillary Refill Skin: Warm, Dry, Intact Psy/Mental Status: Alert, Normal Affect, Normal Mood - Problem List & Annotations (1) 40 weeks gestation of SNOMED Code(s): 65985478 Code(s): Z3A.40 - 40 WEEKS GESTATION OF Status: Acute Current Visit: No (2) Carrier of group B Streptococcus SNOMED Code(s): 9787244330339 Code(s): Z22.330 - CARRIER OF GROUP B STREPTOCOCCUS Status: Acute Current Visit: No (3) Previous section complicating , antepartum condition or complication SNOMED Code(s): 390777874, 128126851 Code(s): O34.219 - MATERNAL CARE FOR UNSP TYPE SCAR FROM PREVIOUS DEL Status: Acute Current Visit: No (4) Second degree perineal laceration during delivery SNOMED Code(s): 7970333 Code(s): O70.1 - SECOND DEGREE PERINEAL LACERATION DURING DELIVERY Status: Acute Current Visit: Yes (5) (vaginal after ) SNOMED Code(s): 600887601 Code(s): O34.219 - MATERNAL CARE FOR UNSP TYPE SCAR FROM PREVIOUS DEL Status: Acute Current Visit: Yes (6) , delivered, current hospitalization SNOMED Code(s): 768684367 Code(s): O34.219 - MATERNAL CARE FOR UNSP TYPE SCAR FROM PREVIOUS DEL Status: Acute Current Visit: Yes - Problem List Review Problem List Initiated/Reviewed/Updated: No - My Orders Last 24 Hours: My Active Orders 11/17/18 09:43 Patient Status [ADT] Routine Activity as Tolerated [RC] PFP Communication Order [RC] ASDIRECTED Notify Provider [RC] PFP Notify Provider [RC] PRN Urinary Catheter Assessment [RC] ASDIRECTED Vital Signs [RC] PER UNIT ROUTINE Nalbuphine [Nubain] 10 mg IVPUSH Q2H PRN Sodium Chloride 0.9% [Saline Flush] 10 ml FLUSH ASDIRECTED PRN Electronic Heart Tones Ext w TOCO [WOMSER] Routine Electronic Heart Tones Internal [WOMSER] Per Unit Routine Peripheral IV Insertion Adult [OM.PC] Routine Resuscitation Status Routine 11/17/18 09:44 Heart Tones [RC] ASDIRECTED Peripheral IV Care [RC] Q2HR 11/17/18 09:45 Lactated Ringers [Ringers, Lactated] 1,000 ml IV ASDIRECTED 11/17/18 10:00 Oxytocin/Lactated Ringers [Pitocin in LR 10 Units/1,000 ML] 10 unit in 1,000 ml IV TITRATE 11/17/18 14:00 Ampicillin 1 gm Sodium Chloride 0.9% [Normal Saline] 100 ml IV Q4H 11/17/18 Lunch Regular Diet [DIET] - Plan Plan:: Plan repeat section Thursday11/17/18.
[2018-11-17] MEDS ORDERED: Witch Hazel Medicated Pads 40/Jar TOP PRN (16:01)
[2018-11-17] MEDS ORDERED: Acetaminophen 325 MG Tab PO PRN (16:01)
[2018-11-17] MEDS ORDERED: Lanolin 100% Cream 7 GM Tube TOP PRN (16:01)
[2018-11-17] MEDS ORDERED: Benzocaine/Menthol 20%-0.5% Spray 56 GM Canister TOP PRN (17:09)
[2018-11-17] MEDS: Ibuprofen 600 MG Tab PO PRN (17:13)
[2018-11-17] MEDS: Docusate Sodium 100 MG Cap PO PRN (17:14)
[2018-11-18] MEDS ORDERED: Bupivacaine 0.25% 10 ML SDV ONE
[2018-11-18] MEDS: Ibuprofen 600 MG Tab PO PRN (04:24)
--- NOTE | 2018-11-18 07:44 | PCM48HPAN ---
Post Anesthesia Note - EVALUATION WITHIN 48HRS OF ANESTHETIC Vital Signs in Normal Range: Yes Patient Participated in Evaluation: Yes Respiratory Function Stable: Yes Airway Patent: Yes Cardiovascular Function Stable: Yes Hydration Status Stable: Yes Pain Control Satisfactory: Yes Nausea and Vomiting Control Satisfactory: Yes Mental Status Recovered: Yes Vital Signs: Last Vital Signs Temp 36.7 C 11/18/18 04:21 Pulse 83 11/18/18 04:21 Resp 14 11/18/18 04:21 BP 106/59 L 11/18/18 04:21 Pulse Ox 99 11/18/18 04:21 - COMMENTS/OBSERVATIONS Free Text/Narrative:: no anesthesia complications noted
--- NOTE | 2018-11-18 08:24 | PCM.DCSUM1 ---
Discharge Summary - Hospital Course Free Text/Narrative:: [facility] Delivery Note Patient Name: RITESH OLIVEIRA Date of : 89 Patient Status: Inpatient Attending Provider: Chip Mcduffie Date: 11/17/18 15:38 Initialization Date: 11/17/18 15:38 L & D Note - General Info Date of Service: 11/17/18 Mother's Due Date: 11/13/18 - Delivery Note Labor: Augmented by ARM, Augmented by Oxytocin Delivery Outcome: Livebirth (Female liveborn 152411/17/18 APARNA, nuchal cord x 1, reduced over head. Weight 3490 g/7 lbs 11.1 oz, APGARs 9/9) Infant Delivery Method: Spontaneous Vaginal Delivery-Single Delivery Mode: Spontaneous Presentation: Right Occiput Anterior (APARNA) Nuchal Cord: Present (x1 reduced over head) Prep: Povidone-Iodine (Betadine Anesthesia Type: Epidural Amniotic Fluid Description: Clear Episiotomy Type: None Laceration: 2nd Degree (right sulcus just inside introitus) Suture type: Other (monocryl x1) Suture size: 3-0 Placenta: Intact, Spontaneous (152811/17/18 central cord insertion intack examined discarded) Cord: 3 Vessels Estimated Blood Loss: 250 Resuscitation Needed: No [place]: Suctioned, Bulb Syringe, Cathether (4 mls clear mucus), Stimulated, Warmed, [place] Used, Warmer Used Provider: Chip Mcduffie Score 1 min: 9 Score 5 min: 9 - General Info Date of Service: 11/17/18 Functional Status: Reports: Pain Controlled - Review of Systems General: Reports: No Symptoms HEENT: Reports: No Symptoms Pulmonary: Reports: No Symptoms Cardiovascular: Reports: No Symptoms Gastrointestinal: Reports: No Symptoms Genitourinary: Reports: No Symptoms Musculoskeletal: Reports: No Symptoms Skin: Reports: No Symptoms Neurological: Reports: No Symptoms Psychiatric: Reports: No Symptoms - Patient Data Vitals - Most Recent: Last Vital Signs Temp 97.8 F 11/17/18 09:43 Pulse 86 11/17/18 10:31 Resp 16 11/17/18 09:43 BP 120/58 L 11/17/18 10:31 Pulse Ox Weight - Most Recent: 218 lb 5 oz I&O - Last 24 Hours: Intake & Output 11/17/18 11/17/18 11/17/18 06:59 14:59 22:59 Intake Total 1320 Balance 1320 Lab Results Last 24 Hours: Laboratory Results - last 24 hr 11/17/18 11/17/18 11/17/18 Range/Units 10:00 10:00 10:00 WBC 11.30 H (3.98-10.04) K/mm3 RBC 4.59 (3.98-5.22) M/mm3 Hgb 12.4 (11.2-15.7) gm/L Hct 37.4 (34.1-44.9) % MCV 81.5 (79.4-94.8) fl MCH 27.0 (25.6-32.2) pg MCHC 33.2 (32.2-35.5) g/dl RDW Std Deviation 51.1 H (36.4-46.3) fL Plt Count 289 (182-369) K/mm3 MPV 8.9 L (9.4-12.3) fl Neut % (Auto) 75.8 H (34.0-71.1) % Lymph % (Auto) 17.4 L (19.3-51.7) % [place] % (Auto) 6.1 (4.7-12.5) % Eos % (Auto) 0.4 L (0.7-5.8) Baso % (Auto) 0.1 (0.1-1.2) % Neut # (Auto) 8.56 H (1.56-6.13) K/mm3 Lymph # (Auto) 1.97 (1.18-3.74) K/mm3 [place] # (Auto) 0.69 H (0.24-0.36) K/mm3 Eos # (Auto) 0.05 (0.04-0.36) K/mm3 Baso # (Auto) 0.01 (0.01-0.08) K/mm3 RPR Non-reactive (NONREACTIVE) Blood Type O POSITIVE Gel Antibody Screen Negative Med Orders - Current: Current Medications Ephedrine Sulfate (Ephedrine Sulfate) 5 mg IVPUSH ASDIRECTED PRN PRN Reason: Hypotension Fentanyl (Sublimaze) 100 mcg EPIDUR Q3H PRN PRN Reason: Pain Last Admin: 11/17/18 13:35 Dose: 100 mcg Fentanyl/Bupivacaine HCl (Fentanyl/Bupivacaine/Ns 2 Mcg-0.125% 100 Ml) 100 ml EPIDUR ASDIRECTED RUDDY Last Admin: 11/17/18 13:35 Dose: 100 ml Ampicillin Sodium 1 gm/ Sodium (Chloride) 100 mls @ 200 mls/hr IV Q4H RUDDY Last Admin: 11/17/18 13:43 Dose: 200 mls/hr Lactated Ringer's (Ringers, Lactated) 1,000 mls @ 100 mls/hr IV ASDIRECTED RUDDY Last Infusion: 11/17/18 14:25 Dose: 100 mls/hr Oxytocin/Lactated Ringer's (Pitocin In Lr 10 Units/1,000 Ml) 10 unit in 1,000 mls @ 12 mls/hr IV TITRATE RUDDY; Protocol Last Titration: 11/17/18 12:18 Dose: 6 munits/min, 36 mls/hr Phenylephrine HCl 1 mg/ Sodium (Chloride) 10.1 mls @ 1 mls/sec IV TITRATE RUDDY; Protocol Nalbuphine HCl (Nubain) 10 mg IVPUSH Q2H PRN PRN Reason: Pain Ondansetron HCl (Zofran) 4 mg IVPUSH ONETIME PRN PRN Reason: Nausea/Vomiting Sodium Chloride (Saline Flush) 10 ml FLUSH ASDIRECTED PRN PRN Reason: Keep Vein Open Discontinued Medications Cefazolin Sodium (Ancef) Confirm Administered Dose 2 gm .ROUTE .STK-MED ONE Stop: 11/17/18 08:29 Lactated Ringer's (Ringers, Lactated) Confirm Administered Dose 2,000 mls @ as directed .ROUTE .STK-MED ONE Stop: 11/17/18 08:29 Ampicillin Sodium 2 gm/ Sodium (Chloride) 100 mls @ 200 mls/hr IV ONETIME ONE Stop: 11/17/18 10:29 Last Admin: 11/17/18 10:09 Dose: 200 mls/hr Ketorolac Tromethamine (Toradol) Confirm Administered Dose 30 mg .ROUTE .STK- MED ONE Stop: 11/17/18 08:29 Morphine Sulfate (Duramorph Pf) Confirm Administered Dose 10 mg .ROUTE .STK-MED ONE Stop: 11/17/18 08:30 Ondansetron HCl (Zofran) Confirm Administered Dose 4 mg .ROUTE .STK-MED ONE Stop: 11/17/18 08:29 Oxytocin (Pitocin) Confirm Administered Dose 20 unit .ROUTE .STK-MED ONE Stop: 11/17/18 08:29 Phenylephrine HCl (Phenylephrine In Ns 100 Mcg/Ml) Confirm Administered Dose 1 mg .ROUTE .STK-MED ONE Stop: 11/17/18 08:30 - Exam Quality Assessment: DVT Prophylaxis General: Alert HEENT: Pupils Equal, Mucous Membr. Moist/[place] Neck: Supple Lungs: Clear to Auscultation, Normal Respiratory Effort Cardiovascular: Regular Rate, Regular Rhythm GI/Abdominal Exam: Normal Bowel Sounds Extremities: Normal Inspection, Normal Range of Motion, Non-Tender, No Pedal Edema, Normal Capillary Refill Skin: Warm, Dry, Intact Psy/Mental Status: Alert, Normal Affect, Normal Mood - Problem List & Annotations (1) 40 weeks gestation of SNOMED Code(s): 33617807 Code(s): Z3A.40 - 40 WEEKS GESTATION OF Status: Acute Current Visit: No (2) Carrier of group B Streptococcus SNOMED Code(s): 2675383726768 Code(s): Z22.330 - CARRIER OF GROUP B STREPTOCOCCUS Status: Acute Current Visit: No (3) Previous section complicating , antepartum condition or complication SNOMED Code(s): 040434808, 019654487 Code(s): O34.219 - MATERNAL CARE FOR UNSP TYPE SCAR FROM PREVIOUS DEL Status: Acute Current Visit: No (4) Second degree perineal laceration during delivery SNOMED Code(s): 5023825 Code(s): O70.1 - SECOND DEGREE PERINEAL LACERATION DURING DELIVERY Status: Acute Current Visit: Yes (5) (vaginal after ) SNOMED Code(s): 427699986 Code(s): O34.219 - MATERNAL CARE FOR UNSP TYPE SCAR FROM PREVIOUS DEL Status: Acute Current Visit: Yes (6) , delivered, current hospitalization SNOMED Code(s): 360445628 Code(s): O34.219 - MATERNAL CARE FOR UNSP TYPE SCAR FROM PREVIOUS DEL Status: Acute Current Visit: Yes - Problem List Review Problem List Initiated/Reviewed/Updated: No - My Orders Last 24 Hours: My Active Orders 11/17/18 09:43 Patient Status [ADT] Routine Activity as Tolerated [RC] PFP Communication Order [RC] ASDIRECTED Notify Provider [RC] PFP Notify Provider [RC] PRN Urinary Catheter Assessment [RC] ASDIRECTED Vital Signs [RC] PER UNIT ROUTINE Nalbuphine [Nubain] 10 mg IVPUSH Q2H PRN Sodium Chloride 0.9% [Saline Flush] 10 ml FLUSH ASDIRECTED PRN Electronic Heart Tones Ext w TOCO [WOMSER] Routine Electronic Heart Tones Internal [WOMSER] Per Unit Routine Peripheral IV Insertion Adult [OM.PC] Routine Resuscitation Status Routine 11/17/18 09:44 Heart Tones [RC] ASDIRECTED Peripheral IV Care [RC] Q2HR 11/17/18 09:45 Lactated Ringers [Ringers, Lactated] 1,000 ml IV ASDIRECTED 11/17/18 10:00 Oxytocin/Lactated Ringers [Pitocin in LR 10 Units/1,000 ML] 10 unit in 1,000 ml IV TITRATE 11/17/18 14:00 Ampicillin 1 gm Sodium Chloride 0.9% [Normal Saline] 100 ml IV Q4H 11/17/18 Lunch Regular Diet [DIET] - Plan Plan:: Plan repeat section Thursday11/17/18. HPI Initial Comments: [facility] Delivery Note Patient Name: RITESH OLIVEIRA Date of : 89 Patient Status: Inpatient Attending Provider: Chip Mcduffie Date: 11/17/18 15:38 Initialization Date: 11/17/18 15:38 L & D Note - General Info Date of Service: 11/17/18 Mother's Due Date: 11/13/18 - Delivery Note Labor: Augmented by ARM, Augmented by Oxytocin Delivery Outcome: Livebirth (Female liveborn 1525 Thursday11/17/18 APARNA, nuchal cord x 1, reduced over head. Weight 3490 g/7 lbs 11.1 oz, APGARs 9/9) Infant Delivery Method: Spontaneous Vaginal Delivery-Single Delivery Mode: Spontaneous Presentation: Right Occiput Anterior (APARNA) Nuchal Cord: Present (x1 reduced over head) Prep: Povidone-Iodine (Betadine Anesthesia Type: Epidural Amniotic Fluid Description: Clear Episiotomy Type: None Laceration: 2nd Degree (right sulcus just inside introitus) Suture type: Other (monocryl x1) Suture size: 3-0 Placenta: Intact, Spontaneous (1528 EWednesday 11/17/18 central cord insertion intack examined discarded) Cord: 3 Vessels Estimated Blood Loss: 250 Resuscitation Needed: No [place]: Suctioned, Bulb Syringe, Cathether (4 mls clear mucus), Stimulated, Warmed, [place] Used, Warmer Used Provider: Chip Mcduffie Score 1 min: 9 Score 5 min: 9 - General Info Date of Service: 11/17/18 Functional Status: Reports: Pain Controlled - Review of Systems General: Reports: No Symptoms HEENT: Reports: No Symptoms Pulmonary: Reports: No Symptoms Cardiovascular: Reports: No Symptoms Gastrointestinal: Reports: No Symptoms Genitourinary: Reports: No Symptoms Musculoskeletal: Reports: No Symptoms Skin: Reports: No Symptoms Neurological: Reports: No Symptoms Psychiatric: Reports: No Symptoms - Patient Data Vitals - Most Recent: Last Vital Signs Temp 97.8 F 11/17/18 09:43 Pulse 86 11/17/18 10:31 Resp 16 11/17/18 09:43 BP 120/58 L 11/17/18 10:31 Pulse Ox Weight - Most Recent: 218 lb 5 oz I&O - Last 24 Hours: Intake & Output 11/17/18 11/17/18 11/17/18 06:59 14:59 22:59 Intake Total 1320 Balance 1320 Lab Results Last 24 Hours: Laboratory Results - last 24 hr 11/17/18 11/17/18 11/17/18 Range/Units 10:00 10:00 10:00 WBC 11.30 H (3.98-10.04) K/mm3 RBC 4.59 (3.98-5.22) M/mm3 Hgb 12.4 (11.2-15.7) gm/L Hct 37.4 (34.1-44.9) % MCV 81.5 (79.4-94.8) fl MCH 27.0 (25.6-32.2) pg MCHC 33.2 (32.2-35.5) g/dl RDW Std Deviation 51.1 H (36.4-46.3) fL Plt Count 289 (182-369) K/mm3 MPV 8.9 L (9.4-12.3) fl Neut % (Auto) 75.8 H (34.0-71.1) % Lymph % (Auto) 17.4 L (19.3-51.7) % [place] % (Auto) 6.1 (4.7-12.5) % Eos % (Auto) 0.4 L (0.7-5.8) Baso % (Auto) 0.1 (0.1-1.2) % Neut # (Auto) 8.56 H (1.56-6.13) K/mm3 Lymph # (Auto) 1.97 (1.18-3.74) K/mm3 [place] # (Auto) 0.69 H (0.24-0.36) K/mm3 Eos # (Auto) 0.05 (0.04-0.36) K/mm3 Baso # (Auto) 0.01 (0.01-0.08) K/mm3 RPR Non-reactive (NONREACTIVE) Blood Type O POSITIVE Gel Antibody Screen Negative Med Orders - Current: Current Medications Ephedrine Sulfate (Ephedrine Sulfate) 5 mg IVPUSH ASDIRECTED PRN PRN Reason: Hypotension Fentanyl (Sublimaze) 100 mcg EPIDUR Q3H PRN PRN Reason: Pain Last Admin: 11/17/18 13:35 Dose: 100 mcg Fentanyl/Bupivacaine HCl (Fentanyl/Bupivacaine/Ns 2 Mcg-0.125% 100 Ml) 100 ml EPIDUR ASDIRECTED RUDDY Last Admin: 11/17/18 13:35 Dose: 100 ml Ampicillin Sodium 1 gm/ Sodium (Chloride) 100 mls @ 200 mls/hr IV Q4H [facility] Last Admin: 11/17/18 13:43 Dose: 200 mls/hr Lactated Ringer's (Ringers, Lactated) 1,000 mls @ 100 mls/hr IV ASDIRECTED RUDDY Last Infusion: 11/17/18 14:25 Dose: 100 mls/hr Oxytocin/Lactated Ringer's (Pitocin In Lr 10 Units/1,000 Ml) 10 unit in 1,000 mls @ 12 mls/hr IV TITRATE RUDDY; Protocol Last Titration: 11/17/18 12:18 Dose: 6 munits/min, 36 mls/hr Phenylephrine HCl 1 mg/ Sodium (Chloride) 10.1 mls @ 1 mls/sec IV TITRATE RUDDY; Protocol Nalbuphine HCl (Nubain) 10 mg IVPUSH Q2H PRN PRN Reason: Pain Ondansetron HCl (Zofran) 4 mg IVPUSH ONETIME PRN PRN Reason: Nausea/Vomiting Sodium Chloride (Saline Flush) 10 ml FLUSH ASDIRECTED PRN PRN Reason: Keep Vein Open Discontinued Medications Cefazolin Sodium (Ancef) Confirm Administered Dose 2 gm .ROUTE .STK-MED ONE Stop: 11/17/18 08:29 Lactated Ringer's (Ringers, Lactated) Confirm Administered Dose 2,000 mls @ as directed .ROUTE .STK-MED ONE Stop: 11/17/18 08:29 Ampicillin Sodium 2 gm/ Sodium (Chloride) 100 mls @ 200 mls/hr IV ONETIME ONE Stop: 11/17/18 10:29 Last Admin: 11/17/18 10:09 Dose: 200 mls/hr Ketorolac Tromethamine (Toradol) Confirm Administered Dose 30 mg .ROUTE .STK- MED ONE Stop: 11/17/18 08:29 Morphine Sulfate (Duramorph Pf) Confirm Administered Dose 10 mg .ROUTE .STK-MED ONE Stop: 11/17/18 08:30 Ondansetron HCl (Zofran) Confirm Administered Dose 4 mg .ROUTE .STK-MED ONE Stop: 11/17/18 08:29 Oxytocin (Pitocin) Confirm Administered Dose 20 unit .ROUTE .STK-MED ONE Stop: 11/17/18 08:29 Phenylephrine HCl (Phenylephrine In Ns 100 Mcg/Ml) Confirm Administered Dose 1 mg .ROUTE .STK-MED ONE Stop: 11/17/18 08:30 - Exam Quality Assessment: DVT Prophylaxis General: Alert HEENT: Pupils Equal, Mucous Membr. Moist/[place] Neck: Supple Lungs: Clear to Auscultation, Normal Respiratory Effort Cardiovascular: Regular Rate, Regular Rhythm GI/Abdominal Exam: Normal Bowel Sounds Extremities: Normal Inspection, Normal Range of Motion, Non-Tender, No Pedal Edema, Normal Capillary Refill Skin: Warm, Dry, Intact Psy/Mental Status: Alert, Normal Affect, Normal Mood - Problem List & Annotations (1) 40 weeks gestation of SNOMED Code(s): 30831602 Code(s): Z3A.40 - 40 WEEKS GESTATION OF Status: Acute Current Visit: No (2) Carrier of group B Streptococcus SNOMED Code(s): 8093954075095 Code(s): Z22.330 - CARRIER OF GROUP B STREPTOCOCCUS Status: Acute Current Visit: No (3) Previous section complicating , antepartum condition or complication SNOMED Code(s): 858647317, 696456472 Code(s): O34.219 - MATERNAL CARE FOR UNSP TYPE SCAR FROM PREVIOUS DEL Status: Acute Current Visit: No (4) Second degree perineal laceration during delivery SNOMED Code(s): 1000055 Code(s): O70.1 - SECOND DEGREE PERINEAL LACERATION DURING DELIVERY Status: Acute Current Visit: Yes (5) (vaginal after ) SNOMED Code(s): 632324482 Code(s): O34.219 - MATERNAL CARE FOR UNSP TYPE SCAR FROM PREVIOUS DEL Status: Acute Current Visit: Yes (6) , delivered, current hospitalization SNOMED Code(s): 190397903 Code(s): O34.219 - MATERNAL CARE FOR UNSP TYPE SCAR FROM PREVIOUS DEL Status: Acute Current Visit: Yes - Problem List Review Problem List Initiated/Reviewed/Updated: No - My Orders Last 24 Hours: My Active Orders 11/17/18 09:43 Patient Status [ADT] Routine Activity as Tolerated [RC] PFP Communication Order [RC] ASDIRECTED Notify Provider [RC] PFP Notify Provider [RC] PRN Urinary Catheter Assessment [RC] ASDIRECTED Vital Signs [RC] PER UNIT ROUTINE Nalbuphine [Nubain] 10 mg IVPUSH Q2H PRN Sodium Chloride 0.9% [Saline Flush] 10 ml FLUSH ASDIRECTED PRN Electronic Heart Tones Ext w TOCO [WOMSER] Routine Electronic Heart Tones Internal [WOMSER] Per Unit Routine Peripheral IV Insertion Adult [OM.PC] Routine Resuscitation Status Routine 11/17/18 09:44 Heart Tones [RC] ASDIRECTED Peripheral IV Care [RC] Q2HR 11/17/18 09:45 Lactated Ringers [Ringers, Lactated] 1,000 ml IV ASDIRECTED 11/17/18 10:00 Oxytocin/Lactated Ringers [Pitocin in LR 10 Units/1,000 ML] 10 unit in 1,000 ml IV TITRATE 11/17/18 14:00 Ampicillin 1 gm Sodium Chloride 0.9% [Normal Saline] 100 ml IV Q4H 11/17/18 Lunch Regular Diet [DIET] - Plan Plan:: Plan repeat section Thursday11/17/18. Brief History: [facility] . L/D Delivery Note. [facility]: [id number] Date of : Patient Status: Inpatient. Attending Provider: Chip Mcduffie Number: [id number]. Date: 11/17/18 15:38Initialization Date: 11/17/18 15:38. L & D Note. - General Info. Date of Service: 11/17/18. Mother's Due Date: 11/13/18. - Delivery Note. Labor: Augmented by ARM, Augmented by Oxytocin. Delivery Outcome: Livebirth (Female liveborn 152411/17/18 APARNA, nuchal cord x 1, reduced over head. Weight 3490 g/7 lbs 11.1 oz, APGARs 9/9). Infant Delivery Method: Spontaneous Vaginal Delivery-Single. Infant Delivery Mode: Spontaneous. Presentation: Right Occiput Anterior (APARNA). Nuchal Cord: Present (x1 reduced over head). Prep: Povidone-Iodine (Betadine. Anesthesia Type: Epidural. Amniotic Fluid Description: Clear. Episiotomy Type: None. Laceration: 2nd Degree (right sulcus just inside introitus). Suture type: Other (monocryl x1). Suture size: 3-0. Placenta: Intact, Spontaneous (152811/17/18 central cord insertion intack examined discarded). Cord: 3 Vessels. Estimated Blood Loss: 250. Resuscitation Needed: No. [place]: Suctioned, Bulb Syringe, Cathether (4 mls clear mucus), Stimulated, Warmed, [place] Used, Warmer Used. Provider: Chip Mcduffie. Score 1 min: 9. Score 5 min: 9. - General Info. Date of Service: 11/17/18. Functional Status: Reports: Pain Controlled. - Review of Systems. General: Reports: No Symptoms. HEENT: Reports: No Symptoms. Pulmonary: Reports: No Symptoms. Cardiovascular: Reports: No Symptoms. Gastrointestinal: Reports: No Symptoms. Genitourinary: Reports: No Symptoms. Musculoskeletal: Reports: No Symptoms. Skin: Reports: No Symptoms. Neurological: Reports: No Symptoms. Psychiatric: Reports: No Symptoms. - Patient Data. Vitals - Most Recent: Last Vital Signs. Temp 97.8 F 11/17/18 09:43. Pulse 86 11/17/18 10:31. Resp 16 11/17/18 09:43. BP 120/58 L 11/17/18 10:31. Pulse Ox. Weight - Most Recent: 218 lb 5 oz. I&O - Last 24 Hours: Intake & Output. 11/17/1908/06/19081908. 06:5914:5922:59. Intake [id number]. [id number]. Lab Results Last 24 Hours: Laboratory Results - last 24 hr. 11/17/1908/06/1908Range/Units. 10:0010:0010:00. WBC 11.30 H (3.98-10.04) K/mm3. RBC 4.59 (3.98-5.22) M/ mm3. Hgb 12.4 (11.2-15.7) gm/L. Hct 37.4 (34.1-44.9) %. MCV 81.5 (79.4-94.8 ) fl. MCH 27.0 (25.6-32.2) pg. MCHC 33.2 (32.2-35.5) g/dl. RDW Std Deviation 51.1 H (36.4-46.3) fL. Plt Count 289 (182-369) K/mm3. MPV 8.9 L ( 9.4-12.3) fl. Neut % (Auto) 75.8 H (34.0-71.1) %. Lymph % (Auto) 17.4 L ( 19.3-51.7) %. [place] % (Auto) 6.1 (4.7-12.5) %. Eos % (Auto) 0.4 L (0.7-5.8). Baso % (Auto) 0.1 (0.1-1.2) %. Neut # (Auto) 8.56 H (1.56-6.13) K/mm3. Lymph # (Auto) 1.97 (1.18-3.74) K/mm3. [place] # (Auto) 0.69 H (0.24-0.36) K/ mm3. Eos # (Auto) 0.05 (0.04-0.36) K/mm3. Baso # (Auto) 0.01 (0.01-0.08) K/ mm3. RPR Non-reactive (NONREACTIVE). Blood Type O POSITIVE. Gel Antibody Screen Negative. Med Orders - Current: Current Medications. Ephedrine Sulfate (Ephedrine Sulfate) 5 mg IVPUSH ASDIRECTED PRN. PRN Reason: Hypotension. Fentanyl (Sublimaze) 100 mcg EPIDUR Q3H PRN. PRN Reason: Pain. Last Admin: 11/17/18 13:35 Dose: 100 mcg. Fentanyl/Bupivacaine HCl (Fentanyl/ Bupivacaine/Ns 2 Mcg-0.125% 100 Ml) 100 ml EPIDUR ASDIRECTED RUDDY. Last Admin: 11/17/18 13:35 Dose: 100 ml. Ampicillin Sodium 1 gm/ Sodium (Chloride) 100 mls @ 200 mls/hr IV Q4H RUDDY. Last Admin: 11/17/18 13:43 Dose: 200 mls/hr. Lactated Ringer's (Ringers, Lactated) 1,000 mls @ 100 mls/hr IV ASDIRECTED RUDDY. Last Infusion: 11/17/18 14:25 Dose: 100 mls/hr. Oxytocin/Lactated Ringer 's (Pitocin In Lr 10 Units/1,000 Ml) 10 unit in 1,000 mls @ 12 mls/hr IV TITRATE RUDDY; Protocol. Last Titration: 11/17/18 12:18 Dose: 6 munits/min, 36 mls/hr. Phenylephrine HCl 1 mg/ Sodium (Chloride) 10.1 mls @ 1 mls/sec IV TITRATE RUDDY; Protocol. Nalbuphine HCl (Nubain) 10 mg IVPUSH Q2H PRN. PRN Reason: Pain. Ondansetron HCl (Zofran) 4 mg IVPUSH ONETIME PRN. PRN Reason: Nausea/Vomiting. Sodium Chloride (Saline Flush) 10 ml FLUSH ASDIRECTED PRN. PRN Reason: Keep Vein Open. Discontinued Medications. Cefazolin Sodium (Ancef ) Confirm Administered Dose 2 gm .ROUTE .STK-MED ONE. Stop: 11/17/18 08:29. Lactated Ringer's (Ringers, Lactated) Confirm Administered Dose 2,000 mls @ as directed .ROUTE .STK-MED ONE. Stop: 11/17/18 08:29. Ampicillin Sodium 2 gm/ Sodium (Chloride) 100 mls @ 200 mls/hr IV ONETIME ONE. Stop: 11/17/18 10:29. Last Admin: 11/17/18 10:09 Dose: 200 mls/hr. Ketorolac Tromethamine (Toradol) Confirm Administered Dose 30 mg .ROUTE .STK-MED ONE. Stop: 11/17/18 08:29. Morphine Sulfate (Duramorph Pf) Confirm Administered Dose 10 mg .ROUTE .STK-MED ONE. Stop: 11/17/18 08:30. Ondansetron HCl (Zofran) Confirm Administered Dose 4 mg .ROUTE .STK-MED ONE. Stop: 11/17/18 08:29. Oxytocin (Pitocin) Confirm Administered Dose 20 unit .ROUTE .STK-MED ONE. Stop: 11/17/18 08:29. Phenylephrine HCl (Phenylephrine In Ns 100 Mcg/Ml) Confirm Administered Dose 1 mg .ROUTE .STK-MED ONE. Stop: 11/17/18 08:30. - Exam. Quality Assessment: DVT Prophylaxis. General: Alert. HEENT: Pupils Equal, Mucous Membr. Moist/ [place]. Neck: Supple. Lungs: Clear to Auscultation, Normal Respiratory Effort. Cardiovascular: Regular Rate, Regular Rhythm. GI/Abdominal Exam: Normal Bowel Sounds. Extremities: Normal Inspection, Normal Range of Motion, Non-Tender, No Pedal Edema, Normal Capillary Refill. Skin: Warm, Dry, Intact. Psy/Mental Status: Alert, Normal Affect, Normal Mood. - Problem List & Annotations. (1) 40 weeks gestation of . SNOMED Code(s): 69754518. Code(s): Z3A.40 - 40 WEEKS GESTATION OF Status: Acute Current Visit: No. (2) Carrier of group B Streptococcus. SNOMED Code(s): 3455257678168. Code(s): Z22.330 - CARRIER OF GROUP B STREPTOCOCCUS Status: Acute Current Visit: No. (3) Previous section complicating , antepartum condition or complication. SNOMED Code(s): 261514816, 993325394. Code(s): O34.219 - MATERNAL CARE FOR UNSP TYPE SCAR FROM PREVIOUS DEL Status: Acute Current Visit: No. (4) Second degree perineal laceration during delivery. SNOMED Code(s): 0916551. Code(s): O70.1 - SECOND DEGREE PERINEAL LACERATION DURING DELIVERY Status: Acute Current Visit: Yes. (5) (vaginal after ). SNOMED Code(s): 854861475. Code(s): O34.219 - MATERNAL CARE FOR UNSP TYPE SCAR FROM PREVIOUS DEL Status: Acute Current Visit: Yes. (6) , delivered, current hospitalization. SNOMED Code(s): 439515302. Code(s): O34.219 - MATERNAL CARE FOR UNSP TYPE SCAR FROM PREVIOUS DEL Status: Acute Current Visit: Yes. - Problem List Review. Problem List Initiated/Reviewed/Updated: No. - My Orders. Last 24 Hours: My Active Orders. 11/17/18 09:43. Patient Status [ADT] Routine. Activity as Tolerated [ RC] PFP. Communication Order [RC] ASDIRECTED. Notify Provider [RC] PFP. Notify Provider [RC] PRN. Urinary Catheter Assessment [RC] ASDIRECTED. Vital Signs [RC] PER UNIT ROUTINE. Nalbuphine [Nubain] 10 mg IVPUSH Q2H PRN. Sodium Chloride 0.9% [Saline Flush] 10 ml FLUSH ASDIRECTED PRN. Electronic Heart Tones Ext w TOCO [WOMSER] Routine. Electronic Heart Tones Internal [WOMSER] Per Unit Routine. Peripheral IV Insertion Adult [OM.PC] Routine. Resuscitation Status Routine. 11/17/18 09:44. Heart Tones [RC ] ASDIRECTED. Peripheral IV Care [RC] Q2HR. 11/17/18 09:45. Lactated Ringers [Ringers, Lactated] 1,000 ml IV ASDIRECTED. 11/17/18 10:00. Oxytocin/Lactated Ringers [Pitocin in LR 10 Units/1,000 ML] 10 unit in 1,000 ml IV TITRATE. 11/17 14:00. Ampicillin 1 gm Sodium Chloride 0.9% [Normal Saline] 100 ml IV Q4H. 11/17/18 Lunch. Regular Diet [DIET]. - Plan. Plan:: Plan repeat section Thursday11/17/18. - Discharge Data Discharge Date: 11/18/18 Discharge Disposition: Home, Self-Care 01 Condition: Good - Discharge Diagnosis/Problem(s) (1) 40 weeks gestation of SNOMED Code(s): 36903951 ICD Code: Z3A.40 - 40 WEEKS GESTATION OF Status: Acute Current Visit: No (2) Carrier of group B Streptococcus SNOMED Code(s): 3445237609280 ICD Code: Z22.330 - CARRIER OF GROUP B STREPTOCOCCUS Status: Acute Current Visit: No (3) Previous section complicating , antepartum condition or complication SNOMED Code(s): 602954985, 516397309 ICD Code: O34.219 - MATERNAL CARE FOR UNSP TYPE SCAR FROM PREVIOUS DEL Status: Acute Current Visit: No (4) Second degree perineal laceration during delivery SNOMED Code(s): 5805041 ICD Code: O70.1 - SECOND DEGREE PERINEAL LACERATION DURING DELIVERY Status : Acute Current Visit: Yes (5) (vaginal after ) SNOMED Code(s): 813774228 ICD Code: O34.219 - MATERNAL CARE FOR UNSP TYPE SCAR FROM PREVIOUS DEL Status: Acute Current Visit: Yes (6) , delivered, current hospitalization SNOMED Code(s): 075711023 ICD Code: O34.219 - MATERNAL CARE FOR UNSP TYPE SCAR FROM PREVIOUS DEL Status: Acute Current Visit: Yes - Patient Summary/Data Complications: None Consults: None Hospital Course: Uneventful - Patient Instructions Diet: Usual Diet as Tolerated Driving: Do Not Drive (48 hours) Notify Provider of: Fever, Increased Pain, Swelling and Redness, Drainage, Nausea and/or Vomiting - Discharge Plan *PRESCRIPTION DRUG MONITORING PROGRAM REVIEWED*: Not Applicable *COPY OF PRESCRIPTION DRUG MONITORING REPORT IN PATIENT MICHEL: Not Applicable Home Medications: Home Meds Vit 90/Iron Fum/Folic [ Formula] 1 each PO DAILY 11/10/14 [ History] Docusate Sodium [Colace] 100 mg PO Q12H PRN #50 cap 11/13/14 [Rx] Referrals: Chip Mcduffie MD [Physician] - (Patient will call clinic appointment to see me in 2 weeks) - Discharge Summary/Plan Comment DC Time >30 min.: No - Patient Data Vitals - Most Recent: Last Vital Signs Temp 98.1 F 11/18/18 04:21 Pulse 83 11/18/18 04:21 Resp 14 11/18/18 04:21 BP 106/59 L 11/18/18 04:21 Pulse Ox 99 11/18/18 04:21 Weight - Most Recent: 218 lb 5 oz I&O - Last 24 hours: Intake & Output 11/17/18 11/18/18 11/18/18 22:59 06:59 14:59 Intake Total 1520 Balance 1520 Lab Results - Last 24 hrs: Laboratory Results - last 24 hr 11/17/18 11/17/18 11/17/18 Range/Units 10:00 10:00 10:00 WBC 11.30 H (3.98-10.04) K/mm3 RBC 4.59 (3.98-5.22) M/mm3 Hgb 12.4 (11.2-15.7) gm/L Hct 37.4 (34.1-44.9) % MCV 81.5 (79.4-94.8) fl MCH 27.0 (25.6-32.2) pg MCHC 33.2 (32.2-35.5) g/dl RDW Std Deviation 51.1 H (36.4-46.3) fL Plt Count 289 (182-369) K/mm3 MPV 8.9 L (9.4-12.3) fl Neut % (Auto) 75.8 H (34.0-71.1) % Lymph % (Auto) 17.4 L (19.3-51.7) % [place] % (Auto) 6.1 (4.7-12.5) % Eos % (Auto) 0.4 L (0.7-5.8) Baso % (Auto) 0.1 (0.1-1.2) % Neut # (Auto) 8.56 H (1.56-6.13) K/mm3 Lymph # (Auto) 1.97 (1.18-3.74) K/mm3 [place] # (Auto) 0.69 H (0.24-0.36) K/mm3 Eos # (Auto) 0.05 (0.04-0.36) K/mm3 Baso # (Auto) 0.01 (0.01-0.08) K/mm3 RPR Non-reactive (NONREACTIVE) Blood Type O POSITIVE Gel Antibody Screen Negative 11/18/18 Range/Units 05:36 WBC 11.10 H (3.98-10.04) K/mm3 RBC 4.51 (3.98-5.22) M/mm3 Hgb 11.8 (11.2-15.7) gm/L Hct 37.0 (34.1-44.9) % MCV 82.0 (79.4-94.8) fl MCH 26.2 (25.6-32.2) pg MCHC 31.9 L (32.2-35.5) g/dl RDW Std Deviation 51.8 H (36.4-46.3) fL Plt Count 289 (182-369) K/mm3 MPV 9.0 L (9.4-12.3) fl Neut % (Auto) 70.3 (34.0-71.1) % Lymph % (Auto) 20.6 (19.3-51.7) % [place] % (Auto) 7.6 (4.7-12.5) % Eos % (Auto) 1.2 (0.7-5.8) Baso % (Auto) 0.2 (0.1-1.2) % Neut # (Auto) 7.81 H (1.56-6.13) K/mm3 Lymph # (Auto) 2.29 (1.18-3.74) K/mm3 [place] # (Auto) 0.84 H (0.24-0.36) K/mm3 Eos # (Auto) 0.13 (0.04-0.36) K/mm3 Baso # (Auto) 0.02 (0.01-0.08) K/mm3 RPR (NONREACTIVE) Blood Type Gel Antibody Screen Med Orders - Current: Current Medications Acetaminophen (Tylenol) 650 mg PO Q4H PRN PRN Reason: mild pain or fever Benzocaine/Menthol (Dermoplast Pain Relief Celina) 0 gm TOP ASDIRECTED PRN PRN Reason: perineal discomfort Docusate Sodium (Colace) 100 mg PO BID PRN PRN Reason: Constipation Last Admin: 11/17/18 17:14 Dose: 100 mg Emollient Ointment (Lansinoh Hpa) 0 gm TOP ASDIRECTED PRN PRN Reason: Sore Nipples Ibuprofen (Motrin) 600 mg PO Q4H PRN PRN Reason: Mild pain or fever Last Admin: 11/18/18 04:24 Dose: 600 mg Witch Sharee (Tucks) 1 pad TOP ASDIRECTED PRN PRN Reason: Perineal Comfort Measure Last Admin: 11/17/18 17:14 Dose: 1 container Discontinued Medications Cefazolin Sodium (Ancef) Confirm Administered Dose 2 gm .ROUTE .STK-MED ONE Stop: 11/17/18 08:29 Ephedrine Sulfate (Ephedrine Sulfate) 5 mg IVPUSH ASDIRECTED PRN PRN Reason: Hypotension Fentanyl (Sublimaze) 100 mcg EPIDUR Q3H PRN PRN Reason: Pain Last Admin: 11/17/18 13:35 Dose: 100 mcg Fentanyl/Bupivacaine HCl (Fentanyl/Bupivacaine/Ns 2 Mcg-0.125% 100 Ml) 100 ml EPIDUR ASDIRECTED [facility] Last Admin: 11/17/18 13:35 Dose: 100 ml Lactated Ringer's (Ringers, Lactated) Confirm Administered Dose 2,000 mls @ as directed .ROUTE .STK-MED ONE Stop: 11/17/18 08:29 Ampicillin Sodium 2 gm/ Sodium (Chloride) 100 mls @ 200 mls/hr IV ONETIME ONE Stop: 11/17/18 10:29 Last Admin: 11/17/18 10:09 Dose: 200 mls/hr Ampicillin Sodium 1 gm/ Sodium (Chloride) 100 mls @ 200 mls/hr IV Q4H [facility] Last Admin: 11/17/18 13:43 Dose: 200 mls/hr Lactated Ringer's (Ringers, Lactated) 1,000 mls @ 100 mls/hr IV ASDIRECTED [facility] Last Infusion: 11/17/18 14:25 Dose: 100 mls/hr Oxytocin/Lactated Ringer's (Pitocin In Lr 10 Units/1,000 Ml) 10 unit in 1,000 mls @ 12 mls/hr IV TITRATE RUDDY; Protocol Last Titration: 11/17/18 15:30 Dose: 500 mls/hr Phenylephrine HCl 1 mg/ Sodium (Chloride) 10.1 mls @ 1 mls/sec IV TITRATE RUDDY; Protocol Ketorolac Tromethamine (Toradol) Confirm Administered Dose 30 mg .ROUTE .STK- MED ONE Stop: 11/17/18 08:29 Morphine Sulfate (Duramorph Pf) Confirm Administered Dose 10 mg .ROUTE .STK-MED ONE Stop: 11/17/18 08:30 Nalbuphine HCl (Nubain) 10 mg IVPUSH Q2H PRN PRN Reason: Pain Ondansetron HCl (Zofran) Confirm Administered Dose 4 mg .ROUTE .STK-MED ONE Stop: 11/17/18 08:29 Ondansetron HCl (Zofran) 4 mg IVPUSH ONETIME PRN PRN Reason: Nausea/Vomiting Oxytocin (Pitocin) Confirm Administered Dose 20 unit .ROUTE .STK-MED ONE Stop: 11/17/18 08:29 Phenylephrine HCl (Phenylephrine In Ns 100 Mcg/Ml) Confirm Administered Dose 1 mg .ROUTE .STK-MED ONE Stop: 11/17/18 08:30 Sodium Chloride (Saline Flush) 10 ml FLUSH ASDIRECTED PRN PRN Reason: Keep Vein Open
[2018-11-18] MEDS: Docusate Sodium 100 MG Cap PO PRN (09:43)
[2018-11-18 15:35] VITALS: BP 133/72
== END 2018-11-18 18:05 | disposition home or self-care (01) | DRG 807 ==
LOC: JD.OB 11-17 09:15 → OBSVTOIN 11-17 15:25 → JD.OB 11-17 15:25
PROVIDERS: ADMIT Obstetrics & Gynecology; ATTEND Obstetrics & Gynecology
PROC: 10E0XZZ Delivery of Products of Conception, External Approach (ICD-10-PCS; principal; 2018-11-17)
PROC: 0KQM0ZZ Repair Perineum Muscle, Open Approach (ICD-10-PCS; 2018-11-17)
PROC: 10907ZC Drainage of Amniotic Fluid, Therapeutic from Products of Conception, Via Natural or Artificial Opening (ICD-10-PCS; 2018-11-17)
DX: O48.0 Post-term pregnancy (principal); Z37.0 Single live birth; O70.1 Second degree perineal laceration during delivery; O69.81X0 Labor and delivery complicated by cord around neck, without compression, not applicable or unspecified; O34.219 Maternal care for unspecified type scar from previous cesarean delivery; O99.824 Streptococcus B carrier state complicating childbirth; Z3A.40 40 weeks gestation of pregnancy
CPT/HCPCS: 36415; 51701; 59025; 59409; 85025; 86592; 86850; 86900; 86901; A9270-GY; J0290; J0690; J1885; J2270; J2370; J2405; J2590; J3010; J3490; J7030; J7120

== ENCOUNTER 2021-03-27 17:15 | Inpatient (IN) | payer SELFPAY ==
[~2021-03-27 17:15] MED LIST changes: +Bupivacaine 0.25% 10 ML SDV ONE; -Heparin Sodium 5,000 Units/ML Vial SUBCUT SCH
[2021-03-27] MEDS ORDERED: Nalbuphine 10 MG/1 ML Vial IVPUSH PRN (17:51)
[2021-03-27] MEDS ORDERED: Lactated Ringers 1,000 ML ONE (17:56)
[2021-03-27] MEDS: Lactated Ringers 1,000 ML IV SCH ×3 (18:00→20:30)
[2021-03-27] MEDS ORDERED: Oxytocin/Lactated Ringers 10 UNIT/1,000 ML BAG IV SCH ×2 (18:00)
[2021-03-27] MEDS ORDERED: Sodium Chloride 0.9% 100 ML ONE (18:03)
[2021-03-27] MEDS ORDERED: Ampicillin 2 GM AdvVial IV ONE (18:03)
[2021-03-27] MEDS ORDERED: Ampicillin 2 GM in Sodium Chloride 0.9% 100 ML IV ONE (18:10)
[2021-03-27] MEDS ORDERED: fentaNYL 100 MCG/2 ML SDV IVPUSH ONE (18:28)
[2021-03-27] MEDS ORDERED: fentaNYL 100 MCG/2 ML SDV ONE (18:30)
[2021-03-27] MEDS ORDERED: Bupivacaine/fentaNYL/NS 100 ML Bag EPIDUR SCH (18:30)
[2021-03-27] MEDS ORDERED: Sodium Chloride 0.9% 10 ML Syringe FLUSH SCH (21:00)
[2021-03-27] MEDS ORDERED: Benzocaine/Menthol 20%-0.5% Spray 78 GM Cannister TOP PRN (21:33)
[2021-03-27] MEDS ORDERED: Witch Hazel Medicated Pads 40/Jar TOP PRN (21:33)
[2021-03-27] MEDS ORDERED: Acetaminophen 325 MG Tab PO PRN (21:33)
[2021-03-27] MEDS ORDERED: Ibuprofen 600 MG Tab PO PRN (21:33)
[2021-03-27] MEDS ORDERED: Docusate Sodium 100 MG Cap PO PRN (21:33)
[2021-03-28] MEDS ORDERED: Misoprostol 200 MCG Tab ONE (04:23)
[2021-03-29 11:20] VITALS: BP 113/75; PULSE 77
== END 2021-03-29 14:43 | disposition home or self-care (01) | DRG 807 ==
LOC: JD.OBCHECK 17:15 → OBSVTOIN 20:29 → JD.OB 20:29
PROVIDERS: ADMIT Obstetrics & Gynecology; ATTEND Obstetrics & Gynecology
PROC: 10E0XZZ Delivery of Products of Conception, External Approach (ICD-10-PCS; principal; 2021-03-27)
PROC: 3E0R3BZ Introduction of Anesthetic Agent into Spinal Canal, Percutaneous Approach (ICD-10-PCS; 2021-03-27)
PROC: 00HU33Z Insertion of Infusion Device into Spinal Canal, Percutaneous Approach (ICD-10-PCS; 2021-03-27)
DX: O99.52 Diseases of the respiratory system complicating childbirth (principal); Z37.0 Single live birth; J45.909 Unspecified asthma, uncomplicated; Z90.49 Acquired absence of other specified parts of digestive tract; Z20.822 Contact with and (suspected) exposure to COVID-19; Z3A.39 39 weeks gestation of pregnancy
CPT/HCPCS: 01967; 36415; 51701; 59025; 59409; 85025; 86592; 86850; 86900; 86901; A9270-GY; J0290; J2590; J3010; J3490; J7120; U0002